=== PATIENT | male | born 1935 | race Caucasian/White ===

== ENCOUNTER 2016-06-13 13:22 | Inpatient (IN) | payer OTHER ==
--- NOTE | 2016-06-13 13:40 | PDOC ---
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 He was to undergo a cystoscopy at his doctor's office this AM but Dr Phelan was unable to perform the procedure due to a urethral stricture. Patient started bleeding ernesto blood from his urethra and Dr Phelan decided the procedure needed to be performed in the OR. The penis was cleaned and covered in gauze and the bleeding has resolved by the time of my examination. Patient is on Coumadin for his AFib but has been off of it since . Dr Carlos Vang is to see the patient tonight & assess for cystoscopy later today or tomorrow morning. Past History - Travel Traveled outside of the country in the last 30 days: No Close contact w/someone who was outside of country & ill: No - Past Medical History Allergies/Adverse Reactions: Allergies Allergy/AdvReac Type Severity Reaction Status Date / Time No Known Allergies Allergy Verified 06/13/16 13:35 Home Medications: Ambulatory Orders Digoxin [Lanoxin -] 0.125 mg PO DAILY@1800 #30 tablet 12/11/14 Clopidogrel Bisulfate [Plavix -] 75 mg PO DAILY 02/01/15 Lisinopril [Prinivil] 5 mg PO DAILY 02/01/15 Metoprolol Tartrate [Lopressor -] 50 mg PO TID 02/01/15 Warfarin Na [Coumadin] 0 mg PO ASDIR 06/14/15 Cancer: Yes (Mucosal melanoma s/p resection x2, Prostate Cancer s/p seed implants) Cardiac Disorders: Yes ([place], a-fib) Hx Myocardial Infarction: Yes HTN: Yes Hypercholesterolemia: Yes - Surgical History Cardiac Surgery: Yes (cardiac stents) Other Surgical History: Seed implants for Prostate CA - Family Disease History Comment:: 06/13/16 14:34 noncontributory - Immunization History Immunization Up to Date: Yes - Psycho/Social/Smoking Cessation Hx Anxiety: No Suicidal Ideation: No Smoking Status: No Smoking History: Never smoked Have you smoked in the past 12 months: No Number of Cigarettes Smoked Daily: 0 Information on smoking cessation initiated: No Hx Alcohol Use: No Drug/Substance Use Hx: No Substance Use Type: None Review of Systems - Review of Systems Able to Perform ROS?: Yes Is the patient limited Montenegrin proficient: No : Yes: Hematuria *Physical Exam - Vital Signs Last Vital Signs Temp Pulse Resp BP Pulse Ox 97.9 F 90 20 188/99 98 06/13/16 13:35 06/13/16 13:35 06/13/16 13:35 06/13/16 13:35 06/13/16 13:35 - Physical Exam General Appearance: Yes: Nourished, Appropriately Dressed HEENT: positive: EOMI, STEPHON, Normal ENT Inspection Neck: positive: Trachea midline, Normal Thyroid, Supple Respiratory/Chest: positive: Lungs Clear, Normal Breath Sounds Cardiovascular: positive: Irregularly Irregular Gastrointestinal/Abdominal: positive: Normal Bowel Sounds, Soft Male Genitalia: positive: other (Blood at tip of urethral meatus, dried blood on gauze covering penis) Musculoskeletal: positive: Normal Inspection Extremity: positive: Normal Inspection, Normal Range of Motion Integumentary: positive: Normal Color, Warm Neurologic: positive: hydropulper II-XII NML intact, Fully Oriented, Alert, Normal Mood/ Affect, Motor Strength 5/5 Heart Score/ECG Review - ECG Impressions Comment:: Impression: Atrial Fibrillation, 74bpm ED Treatment Course - LABORATORY CBC & Chemistry Diagram: 06/13/16 14:34 06/13/16 14:34 - ADDITIONAL ORDERS Additional order review: 06/13/16 14:37 Ordered CBC, CMP, Coagulation studies, Type&Screen, EKG to prep patient for likely cystoscopy later today. Made NPO and instructed to not drink any fluids until seen by urology. 06/13/16 15:[address] Mir. Spoke to Dr Douglas, covering for Dr Ramos, who will admit the patient to med surg. *DC/Admit/Observation/Transfer Diagnosis at time of Disposition: Acute urinary retention - Discharge Dispostion Condition at time of disposition: Stable Admit: Yes - Referrals Referrals: Radha Ramos MD [Primary Care Provider] - Addendum entered and electronically signed by Miguelito Manrique, RES 06/13/16 17:18: Patient developed a moderate nosebleed from the left nostril. Applied pressure but continued to bleed. Placed rhyno rocket in his right nostril and prescribed 5day course of Augmentin to cover for TSS.
[2016-06-13 13:44] VITALS: BMI 29.2
[2016-06-13 14:45] LABS: BASOPHIL 0.6 % (0-2.0); EOSINOPHIL 0.9 % (0-4.5); MCH 30.6 pg (25.7-33.7); MCHC 33.8 g/dl (32.0-35.9); MEAN CELL VOLUME 90.6 fl (80-96); MEAN PLT VOLUME 8.3 fl (7.5-11.1); NEUTROPHILS 74.4 % (42.8-82.8); PLATELET COUNT 165 K/MM3 (134-434); RDW 15.2 % (11.9-15.9); WHITE BLOOD COUNT 6.7 K/mm3 (4.0-10.0)
[2016-06-13 14:59] LABS: INR 1.31 (0.82-1.09); PROTHROMBIN TIME (PATIENT) 14.5 SEC (9.98-11.88)
--- NOTE | 2016-06-13 15:08 | PDOC ---
[id number] have performed the following: I have examined & evaluated the patient, The case was reviewed & discussed with the resident, I agree w/resident 's findings & plan, Exceptions are as noted - HPI HPI: 81 yo M history urethral stricture, sent by urology for admission for cystoscopy. He had unsuccessful placement of catheter in the urologist's office , now presents. Denies bleeding. He was able to urinate this morning, but not since then. Denies any abdominal pain, fever, back pain, N/V. - Physicial Exam PE: GENERAL: Awake, alert, and fully oriented, in no acute distress HEAD: No signs of trauma EYES: PERRLA, EOMI, sclera anicteric, conjunctiva clear ENT: Auricles normal inspection, hearing grossly normal, nares patent, oropharynx clear without exudates. Moist mucosa NECK: Normal ROM, supple, no lymphadenopathy, JVD, or masses LUNGS: Breath sounds equal, clear to auscultation bilaterally. No wheezes, and no crackles HEART: Regular rate and rhythm, normal S1 and S2, no murmurs, rubs or gallops ABDOMEN: Soft, nontender, normoactive bowel sounds. No guarding, no rebound. No masses EXTREMITIES: Normal range of motion, no edema. No clubbing or cyanosis. No cords, erythema, or tenderness NEUROLOGICAL: Cranial nerves II through XII grossly intact. Normal speech, normal gait SKIN: Warm, Dry, normal turgor, no rashes or lesions noted. - Medical Decision Making 81 yo M for admission for cystoscopy and catheter placement.
[2016-06-13 15:31] LABS: ALBUMIN 4.1 g/dl (3.4-5.0); ANION GAP 9 (8-16); BILIRUBIN,TOTAL 1.6 mg/dL (0.2-1.0); CALCIUM 8.7 mg/dL (8.5-10.1); CO2 25 mmol/L (21-32); GLUCOSE,RANDOM 94 mg/dL (74-106); SGOT/AST 20 U/L (15-37); SGPT/ALT 26 U/L (12-78); TOT PROT 7.7 g/dl (6.4-8.2)
[2016-06-13 15:32] LABS: ALK PHOS 66 U/L (45-117)
[2016-06-13] MEDS ORDERED: AMOX TR/POT CLAV 500MG/125MG TABLETS (FP) PO ONE (17:16)
[2016-06-13] MEDS ORDERED: AMOX TR/POT CLAV 875MG/125MG TABLETS (FP) ONE (17:18)
[2016-06-13] MEDS ORDERED: ACETAMINOPHEN 325 MG TABLET (FP) PO PRN (20:37)
[2016-06-13] MEDS: CEFTRIAXONE 50 ML IVPB SCH (21:20)
[2016-06-13] MEDS: METOPROLOL TARTRATE 50 MG TABLET (FP) PO SCH (21:20)
[2016-06-13] MEDS ORDERED: ZOLPIDEM TARTRATE 5 MG TABLET PO ONE (22:15)
[2016-06-14 07:36] LABS: INR 1.27 (0.82-1.09)
[2016-06-14 07:48] LABS: ALBUMIN 3.8 g/dl (3.4-5.0); ALK PHOS 60 U/L (45-117); ANION GAP 10 (8-16); BILIRUBIN,TOTAL 2.1 mg/dL (0.2-1.0); CALCIUM 8.7 mg/dL (8.5-10.1); CO2 29 mmol/L (21-32); CREATININE 1.1 mg/dL (0.7-1.3); GLUCOSE,RANDOM 105 mg/dL (74-106); SGOT/AST 18 U/L (15-37); SGPT/ALT 21 U/L (12-78); TOT PROT 7.3 g/dl (6.4-8.2)
--- NOTE | 2016-06-14 08:18 | CONSULT ---
Consult Consult Specialty:: urology Referred by:: Rachel Reason for Consultation:: urethral stricture - History of Present Illness Chief Complaint: urethral stricture History of Present Illness: Patient with history of urethral stricture s/p an office procedure by another doctor who is having difficulty voiding. The patient is passing bloody urine. Patient denies fever, chills, nausea, or vomiting. Patient is currently NPO. Discussed with patient x 20 minutes possibility of need to go to OR for cystoscopy and possible laser urethrotomy. - History Source History Provided By: Patient Limitations to Obtaining History: No Limitations - Alcohol/Substance Use Hx Alcohol Use: No - Smoking History Smoking history: Never smoked Have you smoked in the past 12 months: No Aproximately how many cigarettes per day: 0 If you are a former smoker, when did you quit?: 4 yrs Home Medications - Allergies Allergies/Adverse Reactions: Allergies Allergy/AdvReac Type Severity Reaction Status Date / Time No Known Allergies Allergy Verified 06/13/16 13:35 - Home Medications Home Medications: Ambulatory Orders Digoxin [Lanoxin -] 0.125 mg PO DAILY@1800 #30 tablet 12/11/14 Clopidogrel Bisulfate [Plavix -] 75 mg PO DAILY 02/01/15 Lisinopril [Prinivil] 5 mg PO DAILY 02/01/15 Metoprolol Tartrate [Lopressor -] 50 mg PO TID 02/01/15 Warfarin Na [Coumadin] 0 mg PO ASDIR 06/14/15 Physical Exam- Vital Signs: Vital Signs Temperature 97.8 F 06/14/16 05:27 Pulse Rate 71 06/14/16 05:27 Respiratory Rate 18 06/14/16 05:27 Blood Pressure 158/76 06/14/16 05:27 O2 Sat by Pulse Oximetry (%) 96 06/13/16 21:00 Constitutional: Yes: Well Nourished, No Distress, Calm Eyes: Yes: WNL, Conjunctiva Clear, EOM Intact HENT: Yes: WNL, Atraumatic, Normocephalic Neck: Yes: WNL, Supple, Trachea Midline Cardiovascular: Yes: Regular Rate and Rhythm Respiratory: Yes: WNL, Regular Gastrointestinal: Yes: WNL, Normal Bowel Sounds, Soft Renal/: Yes: WNL (question of palpable bladder) Pelvis: Yes: WNL Testicles: Yes: WNL Penis: Yes: WNL Prostate Exam: Yes: Asymmetrical, Swollen Labs: CBC, BMP 06/14/16 06:00 Assessment/Plan Impression urethral stricture plan bladder volume scan keep NPO will call Dr. Zeng's office to get complete history will re-evaluate today
--- NOTE | 2016-06-14 09:32 | HP ---
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 He was to undergo a cystoscopy at his doctor's office this AM but Dr Phelan was unable to perform the procedure due to a urethral stricture. Patient started bleeding ernesto blood from his urethra and Dr Phelan decided the procedure needed to be performed in the OR. The penis was cleaned and covered in gauze and the bleeding has resolved by the time of my examination. Patient is on Coumadin for his AFib but has been off of it since . Dr Carlos Vang is to see the patient tonight & assess for cystoscopy later today or tomorrow morning. in ER had nose bleed got nasal packing iv abx given History Source: Patient - Past Medical History Cardiovascular: Yes: AFIB, HTN, Hyperlipdemia, [place] Heme/Onc: Yes: Other (prostate cancer) - Past Surgical History Additional Past Surgical History: melanoma s/p resection - Smoking History Smoking history: Never smoked Have you smoked in the past 12 months: No Aproximately how many cigarettes per day: 0 If you are a former smoker, when did you quit?: 4 yrs - Alcohol/Substance Use Hx Alcohol Use: No Home Medications - Allergies Allergies/Adverse Reactions: Allergies Allergy/AdvReac Type Severity Reaction Status Date / Time No Known Allergies Allergy Verified 06/13/16 13:35 - Home Medications Home Medications: Ambulatory Orders Digoxin [Lanoxin -] 0.125 mg PO DAILY@1800 #30 tablet 12/11/14 Clopidogrel Bisulfate [Plavix -] 75 mg PO DAILY 02/01/15 Lisinopril [Prinivil] 5 mg PO DAILY 02/01/15 Metoprolol Tartrate [Lopressor -] 50 mg PO TID 02/01/15 Warfarin Na [Coumadin] 0 mg PO ASDIR 06/14/15 Physical Examination Vital Signs: Vital Signs Temperature 97.8 F 06/14/16 05:27 Pulse Rate 71 06/14/16 05:27 Respiratory Rate 18 06/14/16 05:27 Blood Pressure 158/76 06/14/16 05:27 O2 Sat by Pulse Oximetry (%) 96 06/13/16 21:00 Constitutional: Yes: Calm HENT: Yes: Other (rhinorocket in nose) Cardiovascular: Yes: Regular Rate and Rhythm, S1, S2 Respiratory: Yes: CTA Bilaterally Gastrointestinal: Yes: Normal Bowel Sounds, Soft Edema: No Neurological: Yes: Alert, Oriented Labs: CBC, BMP 06/14/16 06:00 Imaging - Results EKG: Report Reviewed (afib) Problem List - Problems (1) Hematuria Assessment/Plan: patient was getting cystocopy at urologist office and was found to have urethra stricture and started bleeding so procedure stopped and told to go to ER to get admitted for inpatient cystoscopy in OR [facility] and plavix on hold for last 3 days cxr ordered NPO cardio consult for clearance ekg shows afib iv abx cbc pending Code(s): R31.9 - HEMATURIA, UNSPECIFIED (2) Atrial fibrillation Assessment/Plan: hold coumadin dig and BB inr is subtherapuetic Code(s): I48.91 - UNSPECIFIED ATRIAL FIBRILLATION (3) CAD (coronary artery disease) Assessment/Plan: plavix on hold Code(s): I25.10 - ATHSCL HEART DISEASE OF [place] CORONARY ARTERY W/O ANG PCTRS Qualifiers: Coronary Disease-Associated Artery/Lesion type: [place] coronary artery Associated angina: with other forms of angina pectoris (4) Melanoma Assessment/Plan: 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
[2016-06-14] MEDS ORDERED: PT OWN MED DRAWER 7, Y5N ONE ×2 (09:33→17:32)
[2016-06-14] MEDS: METOPROLOL TARTRATE 50 MG TABLET (FP) PO SCH ×2 (09:37→21:09)
[2016-06-14] MEDS: AMOX TR/POT CLAV 500MG/125MG TABLETS (FP) PO SCH ×2 (09:37→17:36)
[2016-06-14 09:38] LABS: MCH 30.6 pg (25.7-33.7); MEAN CELL VOLUME 89.9 fl (80-96); MEAN PLT VOLUME 8.3 fl (7.5-11.1); PLATELET COUNT 156 K/MM3 (134-434); WHITE BLOOD COUNT 6.4 K/mm3 (4.0-10.0)
[2016-06-14] MEDS: CEFTRIAXONE 50 ML IVPB SCH (09:40)
[2016-06-14] MEDS ORDERED: DIGOXIN 0.125 MG TABLET (FP) PO SCH (10:00)
--- NOTE | 2016-06-14 10:10 | CONSULT ---
Cardiology Consult (text) - Consultation Consultation Note: Asked to see patient for cardiology consultation. However, patient reports that his electric range preparer is Dr. Joaquin Allen and has an follow-up appt with him on . Dr. Fritz notified and Dr. Allen contacted regarding consultation.
[2016-06-14] MEDS ORDERED: DEXTROSE 5%-0.45% SALINE 1,000 ML IV SCH (10:30)
--- NOTE | 2016-06-14 15:25 | CONSULT ---
Consult Consult Specialty:: cardio Referred by:: theo Reason for Consultation:: afib, penile bleeding, preop - History of Present Illness Chief Complaint: bleeding from penis History of Present Illness: 81 year old male sent to ED from Urologist's office for urethral stricture with penile bleeding during attempted cystoscope. He was to undergo a cystoscopy at but doctor was unable to perform the procedure due to a urethral stricture. Patient started bleeding renesto blood from his urethra and Dr Phelan decided the procedure needed to be performed in the OR. The penis was cleaned and covered in gauze and the bleeding resolved Patient is on Coumadin for his AFib but has been off of it since last . says he had microscopic hematuria on urine test prior to the procedure, but no ernesto blood. still with dark urine/maroon colored this am--now stopped. but feeling urinary hesitancy today. spontaneous severe nosebleed (L nares) 2d ago--packed in ER. has known nasal melanoma in R nares--dr for this is at [facility], no local ENT denies cp or sob, including can walk 2 flights of stairs routinely at home no palp PMH: CAD--s/p PCI (ENRIQUETA to LAD 2003 at [facility] for cp, no [place]), then with cp and +mibi so sent for cath 11/2014 at [facility] (ENRIQUETA to OM1, resid dz: 30-50% D1, prox LCx) , HTN, HPL, AF on AC w Coumadin, nasal melanoma, hematuria/urinary retention: had cystoscopy and TURBT in past - Past Medical History Cardio/Vascular: Yes: AFIB, HTN, Hyperlipdemia, [place] - Alcohol/Substance Use Hx Alcohol Use: No - Smoking History Smoking history: Never smoked Have you smoked in the past 12 months: No Aproximately how many cigarettes per day: 0 If you are a former smoker, when did you quit?: 4 yrs Home Medications - Allergies Allergies/Adverse Reactions: Allergies Allergy/AdvReac Type Severity Reaction Status Date / Time No Known Allergies Allergy Verified 06/13/16 13:35 - Home Medications Home Medications: Ambulatory Orders Digoxin [Lanoxin -] 0.125 mg PO DAILY@1800 #30 tablet 12/11/14 Clopidogrel Bisulfate [Plavix -] 75 mg PO DAILY 02/01/15 Lisinopril [Prinivil] 5 mg PO DAILY 02/01/15 Metoprolol Tartrate [Lopressor -] 50 mg PO TID 02/01/15 Warfarin Na [Coumadin] 0 mg PO ASDIR 06/14/15 Review of Systems - Review of Systems Constitutional: denies: Chills, Fever Eyes: denies: Eye Pain HENT: denies: Nasal Congestion Neck: denies: Stiffness Cardiovascular: denies: Palpitations Respiratory: denies: Orthopnea, PND Gastrointestinal: denies: Diarrhea, Rectal Bleeding Genitourinary: denies: Burning, Hematuria Musculoskeletal: denies: Muscle Pain Integumentary: denies: Rash Neurological: denies: Numbness, Seizure, Syncope Endocrine: denies: Excessive Sweating Hematology/Lymphatic: denies: Excessive Bleeding Vital Signs: Vital Signs Temperature 98.0 F 06/14/16 14:45 Pulse Rate 87 06/14/16 14:45 Respiratory Rate 18 06/14/16 14:45 Blood Pressure 133/78 06/14/16 14:45 O2 Sat by Pulse Oximetry (%) 95 06/14/16 09:00 Constitutional: Yes: Well Nourished, No Distress Eyes: No: Sclera Icterus HENT: No: Nasal Congestion Neck: No: Decreased ROM Respiratory: Yes: CTA Bilaterally. No: Accessory Muscle Use, Rales, Wheezes Gastrointestinal: Yes: Normal Bowel Sounds. No: Distention, Hepatomegaly, Palpable Mass, Tenderness Cardiovascular: Yes: Pulse Irregular JVD: No Carotid Bruit: No PMI: Non-Displaced Heart Sounds: Yes: S1, S2. No: Gallop Murmur: No: Systolic Murmur, Diastolic Murmur Musculoskeletal: Yes: Other (No kyphosis) Extremities: No: Cold, Cyanosis Edema: No Peripheral Pulses: 2+ Left Carotid, 2+ Right Carotid, 2+ Left Doralis Pedis, 2+ Right Dorsalis Pedis Integumentary: No: Jaundice Neurological: Yes: Alert, Oriented (x3) Psychiatric: No: Agitated - Other Data Labs, Other Data: CBC, BMP 06/14/16 06:00 06/14/16 06:00 INR, PTT INR 1.27 (0.82-1.09) H 06/14/16 06:00 Laboratory Tests 06/14/16 06/14/16 06/14/16 06:00 06:00 06:00 WBC 6.4 Hgb 12.9 Plt Count 156 INR 1.27 H Sodium 143 Potassium 4.4 BUN 18 Creatinine 1.1 AST 18 ALT 21 ekg 06/13: afib, normal axis/interv; no path q's; nonsp TWAs v4 (no old available ) Imaging - Results Chest X-ray: Report Reviewed (clear lungs/pleura) Assessment/Plan Cath/PCI 11/2014: ENRIQUETA PCI OM1, patent prox LAD stent, mild residual (stent jailed Diag1, mild prox LCx disease) Echo 11/2014: normal LV/RV size and function, mild to mod MR, mild to mod AI, mod TR, mod ao root dilation CAD: -plavix can be d/c'd since pt on warfarin and last ENRIQUETA was 2014 (>12 mo)-- given had microscopic hematuria even prior to instrumentation, and spontaneous, severe epistaxis, will hold it as he will not likely tolerate both AC and plavix -can f/u in office with dr sepulveda and consider adding back plavix or ASA later , if both bleeding conditions are resolved, though this is not an urgent short- term indication -please continue pt's home metopr, lisinopril and atorvastatin regimen HTN: -controlled, cont home meds Afib: -dig and metopr as on at home for HR control -warfarin to resume postop when ok with -if hematuria resolves, but has recurrent epistaxis on warfarin, pt should see ENT for scope and local tx -will check routine dig level here 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
--- NOTE | 2016-06-14 16:26 | EKG ---
Test Reason : Blood Pressure : / mmHG Vent. Rate : 074 BPM Atrial Rate : 300 BPM P-R Int : 000 ms QRS Dur : 084 ms QT Int : 348 ms P-R-T Axes : 000 004 062 degrees QTc Int : 386 ms ATRIAL FIBRILLATION NONSPECIFIC T WAVE ABNORMALITY ABNORMAL ECG WHEN COMPARED WITH ECG OF 29-JUN-2015 20:02, T WAVE VARIATION Confirmed by ORA COLLINS MD ([id number]) on 06/14/2016 4:26:08 PM Referred By: Confirmed By:ORA COLLINS MD
[2016-06-14] MEDS ORDERED: LIDOCAINE HCL/PF 2% SDV 5ML VIAL ONE (18:13)
[2016-06-14] MEDS ORDERED: PROPOFOL 20 ML ONE (18:13)
--- NOTE | 2016-06-14 18:42 | OP ---
Operative Note - Note: Operative Date: 06/14/16 Pre-Operative Diagnosis: urinary retention/urethral stricture Operation: cystoscopy/laser urethrotomy Findings: 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 Post-Operative Diagnosis: Same as Pre-op Surgeon: Wilfred Mir Anesthesia: General Drains & Tubes with Location: [address]
--- NOTE | 2016-06-14 19:39 | OP ---
DATE OF OPERATION: 06/14/2016 PREOPERATIVE DIAGNOSIS: Acute urinary retention and urethral stricture. POSTOPERATIVE DIAGNOSIS: Acute urinary retention and urethral stricture. PROCEDURE: Cystoscopy and laser urethrotomy. ATTENDING: Amy Lu MD ANESTHESIA: General. OPERATION: The patient was evaluated in the morning and was having difficulty voiding. The patient subsequently went into acute urinary retention. The patient could not have a catheter placed due to previous attempts which created false passages in the urethra. The patient was taken emergently to the operating room in order to decompress his bladder and avoid rupture of the bladder. The patient is brought to the operating room, placed in a supine position on the operating room table. General anesthesia is administered at this time. The patient was then placed in the dorsal lithotomy position. He was prepped and draped in the usual sterile manner and cystoscopy is performed. A high-grade urethral stricture with multiple false passages from previous catheter placement attempts were noted. With difficulty, a wire was passed into the bladder. With the wire as a guide, a laser urethrotomy was then performed along the 12 o'clock position of the bulbous urethra, with care as to not cut into viable muscle tissue. With a relaxing incision made at the 12 o'clock position, the rigid cystoscope was brought into the bladder. Irregular prostatic tissue was noted. The bladder was noted to have small clots. No evidence of neoplasm within the bladder was noted. The patient tolerated the procedure very well. A 22-Cymraes catheter was placed over the wire. There were no complications noted. The disposition of the patient is to the recovery room. AMY LU M.D. [id number]
[2016-06-14] MEDS: DEXTROSE 5%-0.45% SALINE 1,000 ML IV SCH (20:02)
[2016-06-14] MEDS ORDERED: ZOLPIDEM TARTRATE 5 MG TABLET ONE (22:04)
[2016-06-14] MEDS: ACETAMINOPHEN 325 MG TABLET (FP) PO PRN (22:07)
[2016-06-14] MEDS ORDERED: ZOLPIDEM TARTRATE 5 MG TABLET PO ONE (22:15)
--- NOTE | 2016-06-15 08:25 | PN ---
Progress Note, Physician - Current Medication List Current Medications: Active Medications Acetaminophen (Tylenol -) 650 mg PO Q6H PRN PRN Reason: FEVER OR PAIN Last Admin: 06/14/16 22:07 Dose: 650 mg Digoxin (Lanoxin -) 0.125 mg PO DAILY [facility] Fentanyl (Sublimaze Injection -) 25 mcg IVPUSH [id number] PRN PRN Reason: PAIN Stop: 06/17/16 18:48 Ceftriaxone Sodium (Rocephin 1gm Ivpb (Pre-Docked)) 50 mls @ 100 mls/hr IVPB DAILY [facility] Dextrose/Sodium Chloride (D5-1/2ns -) 1,000 mls @ 75 mls/hr IV ASDIR [facility] Last Admin: 06/14/16 20:02 Dose: 0 mls Metoprolol Tartrate (Lopressor -) 50 mg PO BID [facility] Last Admin: 06/14/16 21:09 Dose: 50 mg - Objective Vital Signs: Vital Signs Temperature 97.6 F 06/15/16 04:54 Pulse Rate 75 06/15/16 04:54 Respiratory Rate 18 06/15/16 04:54 Blood Pressure 149/75 06/15/16 04:54 O2 Sat by Pulse Oximetry (%) 96 06/14/16 19:45 HENT: Yes: Other (packing) Cardiovascular: Yes: S1, S2 Respiratory: Yes: Regular, CTA Bilaterally Gastrointestinal: Yes: Normal Bowel Sounds, Soft Genitourinary: Yes: Doe Present, Hematuria Labs: CBC, BMP 06/14/16 06:00 06/14/16 06:00 INR, PTT INR 1.27 (0.82-1.09) H 06/14/16 06:00 Assessment/Plan - Problems (1) Hematuria Assessment/Plan: patient was getting cystocopy at urologist office and was found to have urethra stricture and started bleeding so procedure stopped and told to go to ER to get admitted for inpatient cystoscopy in OR Operative Date: 06/14/16 Pre-Operative Diagnosis: urinary retention/urethral stricture Operation: cystoscopy/laser urethrotomy Findings: 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 couamdin and plavix on hold for last 3 days resume coumadin once cleared by uro cxr ordered cardio consult for clearance ekg shows afib iv abx Code(s): R31.9 - HEMATURIA, UNSPECIFIED (2) Atrial fibrillation Assessment/Plan: hold coumadin dig and BB inr is subtherapuetic Code(s): I48.91 - UNSPECIFIED ATRIAL FIBRILLATION (3) CAD (coronary artery disease) Assessment/Plan: plavix on hold Code(s): I25.10 - ATHSCL HEART DISEASE OF [place] CORONARY ARTERY W/O ANG PCTRS Qualifiers: Coronary Disease-Associated Artery/Lesion type: [place] coronary artery Associated angina: with other forms of angina pectoris (4) Melanoma Assessment/Plan: 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
[2016-06-15] MEDS: DIGOXIN 0.125 MG TABLET (FP) PO SCH (09:38)
[2016-06-15] MEDS: CEFTRIAXONE 50 ML IVPB SCH (09:38)
[2016-06-15] MEDS: METOPROLOL TARTRATE 50 MG TABLET (FP) PO SCH ×2 (09:38→21:31)
[2016-06-15] MEDS: ACETAMINOPHEN 325 MG TABLET (FP) PO PRN ×2 (09:57→21:30)
--- NOTE | 2016-06-15 11:57 | PN ---
Progress Note (short form) - Note Progress Note: s: no cp sob palps dizzy o: Vital Signs Period Temp Pulse Resp BP Sys/Bernard Pulse Ox Last 24 Hr 97 F-98.0 F 74-94 16-20 121-170/64-96 95-97 nad no jvd irreg s1s2 no mrg ctabl nl eff aaox3 no le e/c/c no jaundice diaphoresis abd nt nd pos bs Current Medications Generic Name Dose Route Start Last Admin Trade Name Freq PRN Reason Stop Dose Admin Acetaminophen 650 mg 06/14/16 20:01 06/15/16 09:57 Tylenol - PO 650 mg Q6H PRN Administration FEVER OR PAIN Digoxin 0.125 mg 06/15/16 10:00 06/15/16 09:38 Lanoxin - PO 0.125 mg DAILY FERNANDO Administration Fentanyl 25 mcg 06/14/16 18:47 Sublimaze Injection - IVPUSH 06/17/16 18:48 [id number] PRN PAIN Ceftriaxone Sodium 50 mls @ 100 mls/hr 06/15/16 10:00 06/15/16 09:38 Rocephin 1gm Ivpb (Pre-Docked) IVPB 100 mls/hr DAILY FERNANDO Administration Dextrose/Sodium Chloride 1,000 mls @ 75 mls/hr 06/14/16 20:01 06/14/16 20:02 D5-1/2ns - IV 0 mls ASDIR FERNANDO Administration Metoprolol Tartrate 50 mg 06/14/16 22:00 06/15/16 09:38 Lopressor - PO 50 mg BID FERNANDO Administration CBC, BMP 06/14/16 06:00 06/14/16 06:00 ekg 06/13: afib, normal axis/interv; no path q's; nonsp TWAs v4 (no old available ) Cath/PCI 11/2014: ENRIQUETA PCI OM1, patent prox LAD stent, mild residual (stent jailed Diag1, mild prox LCx disease) Echo 11/2014: normal LV/RV size and function, mild to mod MR, mild to mod AI, mod TR, mod ao root dilation echo 08/2015: nl lv/rv, mild lae, mild ar/mr/tr/pr, mild phtn, nl ao root ett 09/2015: no ischemia a/p: CAD: -stable, no angina, acs. normal lvef on recent echo. normal ETT recently. -plavix can be d/c'd since pt on warfarin and last ENRIQUETA was 2014 (>12 mo)-- given had microscopic hematuria even prior to instrumentation, and spontaneous, severe epistaxis, will hold it as he will not likely tolerate both AC and plavix -continue pt's home metopr, lisinopril and atorvastatin regimen HTN: -cont home meds Afib: -rate controlled, cont home dig and metoprolol -warfarin to resume postop when ok with -if hematuria resolves, but has recurrent epistaxis on warfarin, pt should see ENT for scope and local tx aorta aneurysm (root) -reported as mod dilated on 12/10 echo, normal ao root on 08/2015 echo -no sx's -bp reasonably controlled, and pt on bb-including regimen -routine outpt monitoring appropriate
--- NOTE | 2016-06-15 12:29 | CONSULT ---
Consult Consult Specialty:: ENT Reason for Consultation:: Nosebleed - History of Present Illness Chief Complaint: Sudden onset left sided nosebleed on Monday History of Present Illness: 81 yo male with hx of nasal melanoma, s/p excision x2, had sudden onset left sided nosebleed while in ER on Monday. He was also experiencing hematuria. Rapid rhino pack was placed with control. He has been off of Coumadin since last week. - History Source History Provided By: Patient Limitations to Obtaining History: No Limitations - Past Medical History Cardio/Vascular: Yes: AFIB, HTN, Hyperlipdemia, [place] ENT: Yes: Other (Nasal melanoma) - Past Surgical History Additional Surgical History: Nasal melanoma resection with palate prosthesis - Alcohol/Substance Use Hx Alcohol Use: No - Smoking History Smoking history: Never smoked Have you smoked in the past 12 months: No Aproximately how many cigarettes per day: 0 If you are a former smoker, when did you quit?: 4 yrs Home Medications - Allergies Allergies/Adverse Reactions: Allergies Allergy/AdvReac Type Severity Reaction Status Date / Time No Known Allergies Allergy Verified 06/13/16 13:35 - Home Medications Home Medications: Ambulatory Orders Digoxin [Lanoxin -] 0.125 mg PO DAILY@1800 #30 tablet 12/11/14 Clopidogrel Bisulfate [Plavix -] 75 mg PO DAILY 02/01/15 Lisinopril [Prinivil] 5 mg PO DAILY 02/01/15 Metoprolol Tartrate [Lopressor -] 50 mg PO TID 02/01/15 Warfarin Na [Coumadin] 0 mg PO ASDIR 06/14/15 Review of Systems - Review of Systems HENT: reports: Epistaxis Physical Exam-ENT Vital Signs: Vital Signs Temperature 97.9 F 06/15/16 10:00 Pulse Rate 94 H 06/15/16 10:00 Respiratory Rate 18 06/15/16 10:00 Blood Pressure 142/85 06/15/16 10:00 O2 Sat by Pulse Oximetry (%) 96 06/14/16 19:45 Constitutional: Yes: Well Nourished, No Distress Head: Yes: WNL Face: Yes: WNL Eyes: Yes: WNL Nose: Yes: Septum Perforated, Other (dry left pack in place) Nasal Passage: Yes: Other (left pack , right side with dry blood) Oral/Pharynx: Yes: Other (s/p palate resection, no bleeding) Outer Ear: Yes: WNL Neck: Yes: WNL Problem List - Problems (1) Epistaxis Assessment/Plan: Pt with recent left sided nosebleed controlled with rapid rhino pack 2 days ago. Pack should remain 1 more day at least. Can be discharged with follow-up for removal as outpatient tomorrow or Monday. Code(s): R04.0 - EPISTAXIS
[2016-06-15] MEDS ORDERED: ZOLPIDEM TARTRATE 5 MG TABLET PO ONE (21:15)
[2016-06-15] MEDS: DEXTROSE 5%-0.45% SALINE 1,000 ML IV SCH (21:33)
[2016-06-16 05:24] VITALS: TEMP 97.4
--- NOTE | 2016-06-16 08:33 | DS ---
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 He was to undergo a cystoscopy at his doctor's office this AM but Dr Phelan was unable to perform the procedure due to a urethral stricture. Patient started bleeding ernesto blood from his urethra and Dr Phelan decided the procedure needed to be performed in the OR. The penis was cleaned and covered in gauze and the bleeding has resolved by the time of my examination. Patient is on Coumadin for his AFib but has been off of it since . Dr Carlos Vang is to see the patient tonight & assess for cystoscopy later today or tomorrow morning. in ER had nose bleed got nasal packing iv abx given History Source: Patient - Past Medical History Cardiovascular: Yes: AFIB, HTN, Hyperlipdemia, [place] Heme/Onc: Yes: Other (prostate cancer) - Past Surgical History Additional Past Surgical History: melanoma s/p resection - Problems (1) Hematuria Assessment/Plan: patient was getting cystocopy at urologist office and was found to have urethra stricture and started bleeding so procedure stopped and told to go to ER to get admitted for inpatient cystoscopy in OR Operative Date: 06/14/16 Pre-Operative Diagnosis: urinary retention/urethral stricture Operation: cystoscopy/laser urethrotomy Findings: 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 couamdin and plavix resume resume coumadin once cleared by uro cxr ordered cardio consult for clearance ekg shows afib po abx Code(s): R31.9 - HEMATURIA, UNSPECIFIED (2) Atrial fibrillation Assessment/Plan: hold coumadin dig and BB inr is subtherapuetic Code(s): I48.91 - UNSPECIFIED ATRIAL FIBRILLATION (3) CAD (coronary artery disease) Assessment/Plan: plavix on hold Code(s): I25.10 - ATHSCL HEART DISEASE OF [place] CORONARY ARTERY W/O ANG PCTRS Qualifiers: Coronary Disease-Associated Artery/Lesion type: [place] coronary artery Associated angina: with other forms of angina pectoris (4) Melanoma Assessment/Plan: 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 Condition: Improved - Instructions Referrals: Radha Ramos MD [Primary Care Provider] - Valentín Mcneil MD [Staff Physician] - Shelli Zeng MD [Staff Physician] - Disposition: HOME - Home Medications Comprehensive Discharge Medication List: Ambulatory Orders Digoxin [Lanoxin -] 0.125 mg PO DAILY@1800 #30 tablet 12/11/14 Clopidogrel Bisulfate [Plavix -] 75 mg PO DAILY 02/01/15 Lisinopril [Prinivil] 5 mg PO DAILY 02/01/15 Metoprolol Tartrate [Lopressor -] 50 mg PO TID 02/01/15 Warfarin Na [Coumadin] 0 mg PO ASDIR 06/14/15
[2016-06-16 10:42] VITALS: BP 134/70
[2016-06-16] MEDS: DIGOXIN 0.125 MG TABLET (FP) PO SCH (10:45)
[2016-06-16 10:48] VITALS: PULSE 98
[2016-06-16] MEDS: CEFTRIAXONE 50 ML IVPB SCH (10:48)
[2016-06-16] MEDS: METOPROLOL TARTRATE 50 MG TABLET (FP) PO SCH (10:48)
--- NOTE | 2016-06-16 11:15 | PN ---
Progress Note (short form) - Note Progress Note: s: no cp sob palps dizzy o: Vital Signs Period Temp Pulse Resp BP Sys/Bernard Pulse Ox Last 24 Hr 97.4 F-98.9 F 67-98 18-18 126-162/70-90 95 nad no jvd irreg s1s2 no mrg ctabl nl eff aaox3 no le e/c/c no jaundice diaphoresis abd nt nd pos bs Current Medications Generic Name Dose Route Start Last Admin Trade Name Freq PRN Reason Stop Dose Admin Acetaminophen 650 mg 06/14/16 20:01 06/15/16 21:30 Tylenol - PO 650 mg Q6H PRN Administration FEVER OR PAIN Digoxin 0.125 mg 06/15/16 10:00 06/16/16 10:45 Lanoxin - PO 0.125 mg DAILY FERNANDO Administration Fentanyl 25 mcg 06/14/16 18:47 Sublimaze Injection - IVPUSH 06/17/16 18:48 [id number] PRN PAIN Ceftriaxone Sodium 50 mls @ 100 mls/hr 06/15/16 10:00 06/16/16 10:48 Rocephin 1gm Ivpb (Pre-Docked) IVPB 100 mls/hr DAILY FERNANDO Administration Dextrose/Sodium Chloride 1,000 mls @ 75 mls/hr 06/14/16 20:01 06/15/16 21:33 D5-1/2ns - IV 75 mls/hr ASDIR FERNANDO Administration Metoprolol Tartrate 50 mg 06/14/16 22:00 06/16/16 10:48 Lopressor - PO 50 mg BID FERNANDO Administration CBC, BMP 06/14/16 06:00 06/14/16 06:00 ekg 06/13: afib, normal axis/interv; no path q's; nonsp TWAs v4 (no old available ) Cath/PCI 11/2014: ENRIQUETA PCI OM1, patent prox LAD stent, mild residual (stent jailed Diag1, mild prox LCx disease) Echo 11/2014: normal LV/RV size and function, mild to mod MR, mild to mod AI, mod TR, mod ao root dilation echo 08/2015: nl lv/rv, mild lae, mild ar/mr/tr/pr, mild phtn, nl ao root ett 09/2015: no ischemia a/p: CAD: -stable, no angina, acs. normal lvef on recent echo. normal ETT recently. -plavix can be d/c'd since pt on warfarin and last ENRIQUETA was 2014 (>12 mo)-- given had microscopic hematuria even prior to instrumentation, and spontaneous, severe epistaxis, will hold it as he will not likely tolerate both AC and plavix -continue pt's home metopr, lisinopril and atorvastatin regimen HTN: -cont home meds Afib: -rate controlled, cont home dig and metoprolol -warfarin now resumed w/o bridging -if has recurrent epistaxis on warfarin, pt should see ENT for scope and local tx aorta aneurysm (root) -reported as mod dilated on 12/10 echo, normal ao root on 08/2015 echo -no sx's -bp reasonably controlled, and pt on bb-including regimen -routine outpt monitoring appropriate cardiac moraes stable for dc
--- NOTE | 2016-06-16 12:37 | PN ---
Progress Note (short form) - Note Progress Note: Pt without any nasal bleeding since packing placed. Balloon deflated and pack removed. 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 A/P: Resolved epistaxis - Keep nose moist with saline rinses 2-3x/day. -Follow-up as scheduled at [facility] for hx of nasal melanoma Problem List - Problems (1) Epistaxis Code(s): R04.0 - EPISTAXIS
== END 2016-06-16 14:19 | disposition home or self-care (01) | DRG 672 ==
LOC: JER 13:22 → JERBED 16:01 → UNDOADMIN 16:01 → J7W 18:35 → JERBED 18:35 → J7W 20:34 → UNDODISIN 06-14 17:22
PROVIDERS: ADMIT Family Medicine; ATTEND Family Medicine
PROC: 2Y41X5Z Packing of Nasal Region using Packing Material (ICD-10-PCS; 2016-06-13)
PROC: 0T9D8ZZ Drainage of Urethra, Via Natural or Artificial Opening Endoscopic (ICD-10-PCS; principal; 2016-06-14 17:30)
DX: N35.9 Urethral stricture, unspecified (principal); R33.9 Retention of urine, unspecified; I10 Essential (primary) hypertension; E78.5 Hyperlipidemia, unspecified; R04.0 Epistaxis; I48.91 Unspecified atrial fibrillation; I25.10 Atherosclerotic heart disease of native coronary artery without angina pectoris; R31.9 Hematuria, unspecified
CPT/HCPCS: 36415; 71010-TC; 80053; 85025; 85027; 85610; 86850; 86900; 86901; 93005; 93010; 94760; 99282-25

== ENCOUNTER 2016-08-15 02:44 | Emergency (ER) | payer OTHER ==
--- NOTE | 2016-08-15 02:59 | PDOC ---
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 The patient complains of chest pain and some shortness of breath that occurs with his shakes. He also endorses some nausea. The patient has an appointment with Dr. Allen tomorrow morning. PMD: Tanvir Kuo MD <Kindra Rush - Last Filed: 08/15/16 05:59> - General Chief Complaint: Tremors Stated Complaint: TREMORS Past History - Past Medical History Cancer: Yes (Mucosal melanoma s/p resection x2, Prostate Cancer s/p seed implants) Cardiac Disorders: Yes (OK, a-fib) HTN: Yes Hypercholesterolemia: Yes - Surgical History Cardiac Surgery: Yes (cardiac stents) - Immunization History Immunization Up to Date: Yes - Psycho/Social/Smoking Cessation Hx Anxiety: No Suicidal Ideation: No Smoking Status: No Smoking History: Never smoked Have you smoked in the past 12 months: No Number of Cigarettes Smoked Daily: 0 If you are a former smoker, when did you quit?: 4 yrs Hx Alcohol Use: No Drug/Substance Use Hx: No Substance Use Type: None <Vernon Santacruz - Last Filed: 08/15/16 05:51> <Kindra Rush - Last Filed: 08/15/16 05:59> - Past Medical History Allergies/Adverse Reactions: Allergies Allergy/AdvReac Type Severity Reaction Status Date / Time No Known Allergies Allergy Verified 08/15/16 02:51 Home Medications: Ambulatory Orders Digoxin [Lanoxin -] 0.125 mg PO DAILY@1800 #30 tablet 12/11/14 Lisinopril [Prinivil] 5 mg PO DAILY 02/01/15 Metoprolol Tartrate [Lopressor -] 50 mg PO TID 02/01/15 Warfarin Na [Coumadin -] 4 mg PO ASDIR 06/14/15 Review of Systems - Review of Systems Comments:: 08/15/16 03:46 GENERAL/CONSTITUTIONAL: Shakes, generalized weakness. No fever. HEAD, EYES, EARS, NOSE AND THROAT: No change in vision. No ear pain or discharge. No sore throat. CARDIOVASCULAR: Chest pain, shortness of breath. RESPIRATORY: No cough, wheezing, or hemoptysis. GASTROINTESTINAL: Nausea. No vomiting, diarrhea or constipation. GENITOURINARY: No dysuria, frequency, or change in urination. MUSCULOSKELETAL: No joint or muscle swelling or pain. No neck or back pain. SKIN: No rash NEUROLOGIC: No headache, vertigo, loss of consciousness, or change in strength/ sensation. <Kindra Rush - Last Filed: 08/15/16 05:59> *Physical Exam - Vital Signs Last Vital Signs Temp Pulse Resp BP Pulse Ox 100.5 F H 115 H 18 168/88 93 L 08/15/16 02:51 08/15/16 02:51 08/15/16 02:51 08/15/16 02:51 08/15/16 02:51 <Vernon Santacruz - Last Filed: 08/15/16 05:51> - Vital Signs Last Vital Signs Temp Pulse Resp BP Pulse Ox 100.5 F H 115 H 18 168/88 96 08/15/16 02:51 08/15/16 02:51 08/15/16 02:51 08/15/16 02:51 08/15/16 03:11 - Physical Exam Comments: 08/15/16 03:48 GENERAL: Awake, alert, and fully oriented, in no acute distress HEAD: No signs of trauma EYES: PERRLA, EOMI, sclera anicteric, conjunctiva clear ENT: Auricles normal inspection, hearing grossly normal, nares patent, oropharynx clear without exudates. Dry mucosa NECK: Normal ROM, supple, no lymphadenopathy, JVD, or masses LUNGS: Breath sounds equal, clear to auscultation bilaterally. No wheezes, and no crackles HEART: Tachycardic in AFib, normal S1 and S2, mild systolic murmur in aortic area no radiation. No rubs or gallops ABDOMEN: Soft, nontender, normoactive bowel sounds. No guarding, no rebound. No masses EXTREMITIES: Normal range of motion. 1+ pitting edema lower extremities bilaterally. No clubbing or cyanosis. No cords, erythema, or tenderness NEUROLOGICAL: Cranial nerves II through XII grossly intact. Normal speech, normal gait SKIN: Warm, Dry, normal turgor, no rashes or lesions noted. ENDOCRINE: No increased thirst. No abnormal weight change. HEMATOLOGIC/LYMPHATIC: No anemia, easy bleeding, or history of blood clots. ALLERGIC/IMMUNOLOGIC: No hives or skin allergy. <Kindra Rush - Last Filed: 08/15/16 05:59> ED Treatment Course - LABORATORY CBC & Chemistry Diagram: 08/15/16 03:00 08/15/16 03:00 <Vernon Santacruz - Last Filed: 08/15/16 05:51> - LABORATORY CBC & Chemistry Diagram: 08/15/16 03:00 08/15/16 03:00 - ADDITIONAL ORDERS Additional order review: Laboratory Results 08/15/16 08/15/16 03:00 03:00 Phosphorus Cancelled Magnesium Cancelled Creatine Kinase Cancelled Troponin I Cancelled B-Natriuretic Peptide Cancelled Lipase Cancelled 08/15/16 03:00 RBC 3.92 L MCV 88.5 MCHC 34.1 RDW 14.4 MPV 8.5 Neutrophils % 87.3 H Lymphocytes % 4.0 L D Monocytes % 6.0 Eosinophils % 2.4 D Basophils % 0.3 - RADIOLOGY Radiograph Interpretation: 08/15/16 05:58 Fabric Sourcer: Report Date: 08/15/2016 05:26:00 Report Status: Preliminary Begin of Report Content Referring Physician: Vernon Santacruz Patient Name: Peña Fowler THIS IS A FINAL REPORT FROM [facility]AGE RE[facility] DATE OF SERVICE: 2016-08-15 05:26:18.0 IMAGES: 151 EXAM: HEAD CT WITHOUT CONTRAST HISTORY:Tremors COMPARISON: None. FINDINGS: Serial axial images of the brain are provided without priors. There is no acute intra-or extra-axial fluid collections, midline shift, mass effect or hydrocephalus. The brain parenchyma shows diffuse cortical atrophy and chronic nonspecific periventricular and deep white matter parenchymal disease, likely due to chronic microvascular ischemic disease. Small fluid level in the left maxillary sinus is nonspecific. Correlate to exclude sinusitis. Postsurgical changes in the right orbit. Sequela of prior paranasal sinus surgery. Correlate with history. Bilateral mastoid air cells are clear. THIS DOCUMENT HAS BEEN ELECTRONICALLY SIGNED Cruz Elias MD. 08/15/2016 05:51 DUC [facility]. Please call Imaging Duplicating Machine Mechanic [phone] ([phone]) with questions. End of Report Content <Kindra Rush - Last Filed: 08/15/16 05:59> Medical Decision Making - Medical Decision Making 08/15/16 05:52 81yo M with "tremors" and recent h/o UTI which he is being treated for. He has a negative evaluation aside from evidence of UTI, and there are no cultures or sensitivities which was inconclusive. He has no findings on CT and his neurologic exam is grossly unremarkable. He is discharged at this time with instruction to continue his antibiotics and to have follow up with the PMD within the next 48 hours. <Vernon Santacruz - Last Filed: 08/15/16 05:51> *DC/Admit/Observation/Transfer - Discharge Dispostion Admit: No Decision to Admit order Date/Time: 08/15/16 05:52 - Attestations Physician Attestion: 08/15/16 05:56 I, Dr. Vernon Santacruz MD, attest that this document has been prepared under my direction and personally reviewed by me in its entirety. I further attest, that it accurately reflects all work, treatment, procedures and medical decision -making performed by me. <Vernon Santacruz - Last Filed: 08/15/16 05:51> - Attestations Scribe Attestion: Documentation prepared by Kindra Rush, acting as medical editor for Vernon Santacruz MD. 08/15/16 03:49 <Kindra Rush - Last Filed: 08/15/16 05:59> Diagnosis at time of Disposition: Shaking chills UTI (urinary tract infection) Qualifiers: Urinary tract infection type: acute cystitis Hematuria presence: without hematuria Qualified Code(s): N30.00 - Acute cystitis without hematuria - Discharge Dispostion Disposition: HOME Condition at time of disposition: Good - Referrals Referrals: Radha Ramos MD [Primary Care Provider] -
[2016-08-15 03:06] VITALS: BMI 22.3
[2016-08-15 03:30] LABS: BASOPHIL 0.3 % (0-2.0); EOSINOPHIL 2.4 % (0-4.5); MCH 30.1 pg (25.7-33.7); MCHC 34.1 g/dl (32.0-35.9); MEAN CELL VOLUME 88.5 fl (80-96); MEAN PLT VOLUME 8.5 fl (7.5-11.1); NEUTROPHILS 87.3 % (42.8-82.8); PLATELET COUNT 115 K/MM3 (134-434); RDW 14.4 % (11.9-15.9); WHITE BLOOD COUNT 5.2 K/mm3 (4.0-10.0)
[2016-08-15 03:39] LABS: URINE BILIRUBIN NEGATIVE (NEGATIVE); URINE COLOR YELLOW; URINE GLUCOSE (UA) NEGATIVE (NEGATIVE); URINE KETONE NEGATIVE (NEGATIVE); URINE NITRITE NEGATIVE (NEGATIVE); URINE UROBILINOGEN NEGATIVE E.U./dl (0.2-1.0)
[2016-08-15 03:52] LABS: URINE APPEARANCE CLOUDY; URINE BLOOD 3+ (NEGATIVE); URINE LEUK ESTERASE 3+ (NEGATIVE); URINE PROTEIN 2+ (NEGATIVE)
[2016-08-15 03:58] LABS: URINE BACTERIA MODERATE /hpf (NONE SEEN); URINE MUCUS RARE; URINE RBC 1011 /hpf (0-3); URINE WBC 90 /hpf (3-5); YEAST RARE
[2016-08-15 04:03] LABS: ALBUMIN 3.3 g/dl (3.4-5.0); ANION GAP 9 (8-16); CALCIUM 8.3 mg/dL (8.5-10.1); CO2 27 mmol/L (21-32); GLUCOSE,RANDOM 137 mg/dL (74-106); MAGNESIUM 1.9 mg/dL (1.8-2.4)
[2016-08-15 04:06] LABS: ALK PHOS 97 U/L (45-117); BILIRUBIN,TOTAL 2.5 mg/dL (0.2-1.0); CREATININE 0.9 mg/dL (0.7-1.3); PHOSPHOROUS 1.8 mg/dL (2.5-4.9); SGOT/AST 120 U/L (15-37); SGPT/ALT 167 U/L (12-78); TOT PROT 6.7 g/dl (6.4-8.2); TROPONIN I 0.09 ng/ml (0.00-0.05)
[2016-08-15 04:37] LABS: INR 1.38 (0.82-1.09); PROTHROMBIN TIME (PATIENT) 15.3 SEC (9.98-11.88)
[2016-08-15 05:05] VITALS: TEMP 98.3
[2016-08-15 06:43] VITALS: BP 165/85; PULSE 96
== END 2016-08-15 07:00 | disposition home or self-care (01) ==
LOC: JER 02:44
DX: G25.2 Other specified forms of tremor (principal); N30.00 Acute cystitis without hematuria; I25.2 Old myocardial infarction; I10 Essential (primary) hypertension; I48.91 Unspecified atrial fibrillation; Z79.01 Long term (current) use of anticoagulants; Z95.5 Presence of coronary angioplasty implant and graft; E78.00 Pure hypercholesterolemia, unspecified; Z85.46 Personal history of malignant neoplasm of prostate; Z85.820 Personal history of malignant melanoma of skin; Z85.22 Personal history of malignant neoplasm of nasal cavities, middle ear, and accessory sinuses
CPT/HCPCS: 36415; 70450-TC; 71010-TC; 80053; 81003; 81015; 82550; 82553; 83605; 83690; 83735; 83880; 84100; 84484; 85025; 85610; 86850; 86900; 86901; 87086; 99284-25

== ENCOUNTER 2016-08-19 06:24 | Day surgery (SDC) | payer OTHER ==
[2016-08-16 15:42] VITALS: BMI 29.5
[2016-08-19 07:30] LABS: INR 1.16 (0.82-1.09); PROTHROMBIN TIME (PATIENT) 12.8 SEC (9.98-11.88)
[2016-08-19 07:32] LABS: ACTIVATED PTT 30.8 SECONDS (26.9-34.4)
[2016-08-19] MEDS ORDERED: PROPOFOL 20 ML ONE (08:02)
[2016-08-19] MEDS ORDERED: MIDAZOLAM HCL 2 MG/2 ML SINGLE DOSE VIAL ONE (08:03)
[2016-08-19] MEDS ORDERED: ceFAZolin SODIUM 1 GM VIAL ONE (08:22)
[2016-08-19] MEDS ORDERED: ceFAZolin SODIUM 1 GM VIAL IVPB ONE (08:24)
[2016-08-19] MEDS ORDERED: GENTAMICIN SO4 80 MG/2 ML VIAL IVPB ONE (08:30)
[2016-08-19] MEDS ORDERED: GENTAMICIN SO4 80 MG/2 ML VIAL ONE (08:30)
[2016-08-19] MEDS ORDERED: oxyCODONE HCL 5 MG TABLET PO PRN ×5 (08:41→10:59)
[2016-08-19] MEDS ORDERED: ACETAMINOPHEN 325 MG TABLET (FP) PO PRN ×4 (08:41→10:59)
[2016-08-19] MEDS ORDERED: ONDANSETRON 4 MG/2 ML VIAL IVPUSH PRN (08:41)
[2016-08-19] MEDS ORDERED: LACTATED RINGERS SOLUTION 1,000 ML IV SCH (08:45)
--- NOTE | 2016-08-19 09:26 | OP ---
Operative Note - Note: Operative Date: 08/19/16 Pre-Operative Diagnosis: gross hematuria. bladder tumor Operation: cysto turbt bladder tumor Findings: 3 cm malignant r hemidome tumor Surgeon: Shelli Zeng Specimens Removed: tumor sent to lab
--- NOTE | 2016-08-19 09:28 | PN ---
IVET Navarro Note Chief Complaint: stable post op - Objective Vital Signs: Vital Signs Temperature 98.8 F 08/19/16 06:59 Pulse Rate 87 08/19/16 06:59 Respiratory Rate 18 08/19/16 06:59 Blood Pressure 141/85 08/19/16 06:59 O2 Sat by Pulse Oximetry (%) 94 L 08/19/16 06:59 Labs/Additional Data: INR, PTT INR 1.16 (0.82-1.09) H 08/19/16 06:35 Assessment/Plan pt had cysto turbt lg 3 cm tumor at r hemidome sent for path d/c on keflex and percocet prn f/u in office monday jackie to td santiago
--- NOTE | 2016-08-19 09:38 | HP ---
DATE OF ADMISSION: 08/19/2016 HISTORY OF PRESENT ILLNESS: Patient is an 81-year-old male with history of gross total painless hematuria. Cystoscopy performed in the office revealed a large papillary mass at the dome of the bladder. Therefore, patient is scheduled electively for a transurethral resection of the bladder tumor. He has undergone radiation seed implantation in July of 2006 for localized prostate cancer. Patient also underwent maxillary sinus surgery for melanoma in 2016. He also underwent radiation to the area. The patient also had several episodes of intermittent urinary retention. He presently has a Doe catheter in after his cystoscopy. Patient does have history of high blood pressure and atrial fibrillation for which he takes both Coumadin and Plavix. Both were stopped 1 week earlier. He denies any allergies, ethanolism, or tobacco. PHYSICAL EXAMINATION: Chest: Clear. Abdomen: Soft. There is no CVA tenderness, no hepatosplenomegaly. Genitalia: Shows normal adult circumcised male. Testes are atraumatic, both in the scrotum. No hernias or hydroceles are elicited. Meatus is adequate. Phallus is normal. His prostate is 1+, firm, and nontender. DIAGNOSTIC DATA: Latest PSA performed on August 15, 2016, revealed to be 0.1. BUN 18, creatinine 0.9. Cystoscopy in the office on August 11, 2016, revealed a papillary bladder mass at the dome of the bladder. This was biopsied, then, a Doe catheter was inserted. 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 PLAN: Patient will be scheduled for transurethral resection of the tumor for both therapeutic and staging purposes. MEDICATIONS AT HOME: Ambien 5 mg, Plavix 75 mg, digoxin 1.25 mcg, Flomax 0.4 mg, Lipitor 20, lisinopril 5, metoprolol 50, and Coumadin 2 mg, which he takes 2 tablets daily, ALLERGIES: Again, there are no known allergies. The patient has had a coronary stent several years ago. He does have a diagnosis of hypertension and dyslipidemia. He denies any alcohol or drug use. Abram [id number]
[2016-08-19] MEDS ORDERED: ZOLPIDEM TARTRATE 5 MG TABLET PO PRN (11:01)
--- NOTE | 2016-08-19 13:13 | OP ---
DATE OF OPERATION: 08/19/2016 OPERATIVE PROCEDURE: 1. Cystourethroscopy. 2. Transurethral resection, bladder tumor. PREOPERATIVE DIAGNOSIS: 1. Hematuria. 2. Bladder tumor. POSTOPERATIVE DIAGNOSIS: 1. Hematuria. 2. Bladder tumor. ANESTHESIA: General. DESCRIPTION OF PROCEDURE: Under above-stated anesthesia, patient was prepped and draped in the usual sterile manner. He was placed in the dorsal lithotomy position. A resectoscope was inserted. Inspection of the bladder revealed a grade 1 trabeculation throughout the bladder. The patient was status post a TURP, and therefore the prosthetic fossa was wide open. The trigone revealed some squamous metaplasia. Ureteral orifices were within normal limits with reflux of clear urine bilaterally. At the level of the right юлия-dome, there appeared to be a papillary hemorrhagic fungating lesion, measuring 3-4 cm in diameter. The monopolar loop was introduced, and the tumor was resected in the usual fashion. Tumor chips were evacuated with an Ellik evacuator. Fulguration was performed for complete hemostasis. Inspection of the bladder revealed no evidence of bleeding. Therefore, the bladder was emptied, and a 20-[place] 10 ml Doe was connected to a drainage bag. The patient tolerated the procedure well. He returned to the recovery room in good condition. Abram [id number]
[2016-08-19] MEDS: METOPROLOL TARTRATE 50 MG TABLET (FP) PO SCH (13:39)
[2016-08-19] MEDS: CEPHALEXIN MONOHYDRATE 500 MG CAPSULE (UD) PO SCH (13:39)
[2016-08-19 15:04] VITALS: BP 153/88; PULSE 78; TEMP 98.4
[2016-08-19] MEDS ORDERED: TAMSULOSIN HCL 0.4 MG CAP.ER.24H (FP) PO SCH (22:00)
[2016-08-20] MEDS ORDERED: LISINOPRIL 5 MG TABLET (FP) PO SCH (10:00)
[2016-08-20] MEDS ORDERED: DIGOXIN 0.125 MG TABLET (FP) PO SCH (10:00)
--- NOTE | 2016-08-22 11:29 | PATH ---
Surgical Pathology Report Patient Name: TAMIKO MARTIN [facility]. Rec. #: [id number] /Age/Gender: 1935 (Age: 81) / M Account: [id number] Location: AMBULATORY SURG Taken: 08/19/2016 Received: 08/19/2016 Reported: 08/22/2016 Physicians: Shelli Zeng M.D. 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 LAMINA PROPRIA INVASION: FOCALLY IDENTIFIED. MUSCULARIS PROPRIA: PRESENT, NOT INVOLVED BY CARCINOMA. LYMPHOVASCULAR INVASION: NOT DEFINITIVELY IDENTIFIED CARCINOMA IN SITU (CIS): NOT DEFINITIVELY IDENTIFIED. Electronically Signed Mervin Cabrales M.D. Gross Description Received in formalin labeled "bladder chips" is a 2.5 x 2.0 x 0.3 cm aggregate of avila soft to firm tissue fragments. The formalin is filtered and the specimen is entirely submitted in one cassette. 08/19/2016 [facility]08/19/2016
== END 2016-08-19 15:42 | disposition home or self-care (01) ==
LOC: JASUSAT 06:24 → JASU-SURG 06:24 → JASUSAT 15:42
PROVIDERS: ATTEND Urology
PROC: 0TBB8ZX Excision of Bladder, Via Natural or Artificial Opening Endoscopic, Diagnostic (ICD-10-PCS; principal; 2016-08-19 08:00)
DX: C67.9 Malignant neoplasm of bladder, unspecified (principal); I10 Essential (primary) hypertension; I48.91 Unspecified atrial fibrillation; Z79.01 Long term (current) use of anticoagulants; Z85.46 Personal history of malignant neoplasm of prostate; Z92.21 Personal history of antineoplastic chemotherapy
CPT/HCPCS: 36415; 85610; 85730; 87086; 88307-TC; 94760

== ENCOUNTER 2017-01-10 19:47 | Emergency (ER) | payer OTHER ==
[2017-01-10 20:08] VITALS: BP 194/140; PULSE 95; TEMP 97.7; BMI 28.1
== END 2017-01-10 20:55 | disposition left against medical advice (07) ==
LOC: JER 19:47
DX: Z53.21 Procedure and treatment not carried out due to patient leaving prior to being seen by health care provider (principal)
CPT/HCPCS: 99281-25

== ENCOUNTER 2018-12-05 09:19 | Day surgery (SDC) | payer OTHER ==
[2018-12-04 16:52] VITALS: BMI 28.5
[~2018-12-05 09:19] MED LIST: ACETAMINOPHEN 325 MG TABLET (FP) PO PRN; CYCLOPENTOLATE HCL 1% OPHTH SOLN 2 ML BOTTLE OP SCH; KETOROLAC TROMETHAMINE 0.5% EYE DROP 1 DROP DROPS OP SCH; OFLOXACIN 0.3% OPHTHALMIC SOLUTION 5 ML BOTTLE OP SCH; PHENYLEPHRINE 2.5% OPHTH SOLN 15 ML BOTTLE OP SCH; PHENYLEPHRINE/KETOROLAC 4 ML VIAL IO ONE; TROPICAMIDE 1% OPHTH SOLN 15 ML BOTTLE OP SCH
[2018-12-05] MEDS ORDERED: CYCLOPENTOLATE HCL 1% OPHTH SOLN 2 ML BOTTLE ONE (10:01)
[2018-12-05] MEDS ORDERED: OFLOXACIN 0.3% OPHTHALMIC SOLUTION 5 ML BOTTLE ONE (10:01)
[2018-12-05] MEDS ORDERED: TROPICAMIDE 1% OPHTH SOLN 15 ML BOTTLE ONE (10:02)
[2018-12-05] MEDS ORDERED: KETOROLAC TROMETHAMINE 0.5% EYE DROP 1 DROP DROPS ONE (10:02)
[2018-12-05] MEDS ORDERED: PHENYLEPHRINE 2.5% OPHTH SOLN 15 ML BOTTLE ONE (10:02)
[2018-12-05] MEDS ORDERED: MIDAZOLAM HCL 2 MG/2 ML SINGLE DOSE VIAL ONE (11:15)
[2018-12-05] MEDS ORDERED: TETRACAINE 0.5% OPHTH SOLN 2 ML BOTTLE OS ONE (11:17)
[2018-12-05] MEDS ORDERED: POVIDONE-IODINE 5% OPHTHALMIC PREP 30 ML SOLUTION OS ONE (11:19)
[2018-12-05] MEDS ORDERED: BSS (NA/CA/MG/K) BALANCED SALT SOLUTION OPHTH SOLN 15 ML BOTTLE OS ONE (11:27)
[2018-12-05] MEDS ORDERED: LIDOCAINE HCL 1% PRESERVATIVE FREE - 30ML VIAL IO ONE (11:27)
[2018-12-05] MEDS ORDERED: CHONDROITIN SU A/HYALUR SOD 1 KIT IO ONE (11:27)
[2018-12-05] MEDS ORDERED: PHENYLEPHRINE/KETOROLAC 4 ML VIAL IO ONE (11:34)
[2018-12-05] MEDS ORDERED: EPINEPHrine/PF 1 MG/1 ML (1:1,000) AMPULE SQ ONE (11:34)
[2018-12-05 13:40] VITALS: TEMP 97.8
[2018-12-05 13:47] VITALS: BP 169/76; PULSE 62
--- NOTE | 2018-12-05 17:51 | SPEC ---
DATE OF OPERATION: 12/05/2018 OPERATION: Phacoemulsification of left cataract, with posterior chamber intraocular lens implantation, left eye. Lens used [id number], 22.5 Diopter power, Serial No. [id number]. PREOPERATIVE DIAGNOSIS: Cataract, left eye. POSTOPERATIVE DIAGNOSIS: Cataract, left eye. SURGEON: Micah Villasenor M.D. ANESTHESIA: Topical MAC. COMPLICATIONS: None. PROCEDURE: The patient was brought to the operating room and correctly identified along with the operative site and the correct intraocular lens durant. The patient was then prepped and draped in the usual sterile fashion including 5% Betadine solution in the conjunctival sac and an eyelid drape. An eyelid speculum was then placed in the eye. A paracentesis port was created and approximately 0.5 mL of preservative free Lidocaine was then injected into the eye. Viscoelastic was then injected to inflate the anterior chamber. A temporal clear corneal wound was created. A continuous circular capsulorrhexis was performed. The nucleus was then hydrodissected with BSS and removed with phacoemulsification. The remaining cortical material was irrigated and aspirated. Viscoelastic was injected to inflate the capsular bag and the intraocular lens was then implanted into the capsular bag. The remaining Viscoelastic was irrigated and aspirated from the eye. The IOL was noted to be well centered and completely covered by the anterior capsulorrhexis. Topical vancomycin was placed and the eye patched and shielded. All wounds were tested and found to be watertight. No suture was placed. The eye was then shielded. The patient was then discharged from the operating room in stable condition. MICAH VILLASENOR M.D. [id number]
== END 2018-12-05 12:40 | disposition home or self-care (01) ==
LOC: JASU-SURG 09:19
PROVIDERS: ATTEND Ophthalmology
PROC: 08RK3JZ Replacement of Left Lens with Synthetic Substitute, Percutaneous Approach (ICD-10-PCS; principal; 2018-12-05 11:00)
DX: H26.9 Unspecified cataract (principal)
CPT/HCPCS: C9447

== ENCOUNTER 2020-07-09 21:44 | Inpatient (IN) | payer OTHER ==
[2020-07-09 23:39] LABS: BASO % 0.5 % (0-2.0); EOS % 0.5 % (0-4.5); HEMATOCRIT 35.5 % (35.4-49); HEMOGLOBIN 11.9 GM/dL (11.7-16.9); LYMPH % 15.3 % (8-40); MCH 31.7 pg (25.7-33.7); MCHC 33.5 g/dl (32.0-35.9); MEAN CELL VOLUME 94.5 fl (80-96); MEAN PLT VOLUME 9.2 fl (7.5-11.1); MONO % 10.2 % (3.8-10.2); NEUT % 73.5 % (42.8-82.8); PLATELET COUNT 175 K/MM3 (134-434); RBC 3.75 M/mm3 (4.00-5.60); RDW 14.7 % (11.9-15.9); WHITE BLOOD COUNT 6.7 K/mm3 (4.0-10.0)
[2020-07-09 23:46] LABS: INR 1.33 (0.83-1.09)
[2020-07-10 00:08] LABS: POTASSIUM 3.9 mmol/L (3.5-5.1)
[2020-07-10 00:10] LABS: ALBUMIN 3.7 g/dl (3.4-5.0); BLOOD UREA NITROGEN 19.9 mg/dL (7-18); CALCIUM 8.9 mg/dL (8.5-10.1); MAGNESIUM 2.1 mg/dL (1.8-2.4)
[2020-07-10 00:14] LABS: CREATININE 1.1 mg/dL (0.55-1.3)
[2020-07-10 00:15] LABS: BILIRUBIN,TOTAL 2.4 mg/dL (0.2-1); TOT PROT 7.2 g/dl (6.4-8.2)
[2020-07-10 00:19] LABS: N-TERMINAL BNP 6067.9 pg/ml (5-450)
[2020-07-10 02:05] LABS: EPI CELLS 14 /uL (0-25.1); HYALINE CASTS 1 /uL (0-3.1); PH,URINE 6.5 (5.0-8.0); URINE APPEARANCE CLEAR; URINE BACTERIA 29 /uL (0-1359); URINE BILIRUBIN NEGATIVE (NEGATIVE); URINE COLOR YELLOW; URINE GLUCOSE (UA) NEGATIVE (NEGATIVE); URINE KETONE NEGATIVE (NEGATIVE); URINE LEUK ESTERASE NEGATIVE (NEGATIVE); URINE NITRITE NEGATIVE (NEGATIVE); URINE PROTEIN 1+ (NEGATIVE); URINE RBC 14 /uL (0-23.9); URINE WBC 17 /uL (0-25.8)
[2020-07-10] MEDS ORDERED: ACETAMINOPHEN 1000 MG/100 ML VIAL (NON FORMULARY) IVPB ONE (02:23)
[2020-07-10] MEDS ORDERED: ACETAMINOPHEN INJECTION 100 ML IVPB ONE (03:03)
[2020-07-10] MEDS ORDERED: metoPROLOL SUCCINATE 25 MG TAB.SR.24H (FP) PO ONE (05:33)
[2020-07-10] MEDS ORDERED: LISINOPRIL 5 MG TABLET PO ONE ×2 (05:33→12:52)
[2020-07-10] MEDS ORDERED: LISINOPRIL 5 MG TABLET ONE ×2 (05:57→09:05)
[2020-07-10] MEDS ORDERED: METOPROLOL TARTRATE 50 MG TABLET (FP) ONE (05:57)
[2020-07-10] MEDS ORDERED: metoPROLOL SUCCINATE 25 MG TAB.SR.24H (FP) ONE (05:58)
[2020-07-10] MEDS: METOPROLOL TARTRATE 50 MG TABLET (FP) PO SCH ×3 (06:03→21:15)
[2020-07-10] MEDS ORDERED: FUROSEMIDE 40 MG/4 ML INJECTABLE VIAL IVPUSH ONE (06:45)
[2020-07-10] MEDS ORDERED: FUROSEMIDE 40 MG/4 ML INJECTABLE VIAL ONE (07:29)
[2020-07-10] MEDS ORDERED: PANTOPRAZOLE SODIUM 40 MG VIAL ONE (09:05)
[2020-07-10] MEDS ORDERED: PANTOPRAZOLE SODIUM 40 MG VIAL IVPUSH SCH (10:00)
[2020-07-10] MEDS ORDERED: LISINOPRIL 5 MG TABLET PO SCH (10:00)
[2020-07-10 12:37] LABS: HEMATOCRIT 37.5 % (35.4-49); MCH 32.1 pg (25.7-33.7); MCHC 34.6 g/dl (32.0-35.9); MEAN CELL VOLUME 92.8 fl (80-96); MEAN PLT VOLUME 8.5 fl (7.5-11.1); PLATELET COUNT 198 K/MM3 (134-434); RBC 4.04 M/mm3 (4.00-5.60); RDW 14.9 % (11.9-15.9); WHITE BLOOD COUNT 8.2 K/mm3 (4.0-10.0)
[2020-07-10 12:52] VITALS: BMI 27.1
[2020-07-10 13:05] LABS: POTASSIUM 3.5 mmol/L (3.5-5.1)
[2020-07-10 13:09] LABS: CALCIUM 8.9 mg/dL (8.5-10.1)
[2020-07-10 13:10] LABS: ALBUMIN 3.8 g/dl (3.4-5.0); BLOOD UREA NITROGEN 16.2 mg/dL (7-18)
[2020-07-10 13:13] LABS: CREATININE 1.1 mg/dL (0.55-1.3)
[2020-07-10 13:15] LABS: BILIRUBIN,TOTAL 3.7 mg/dL (0.2-1); TOT PROT 7.6 g/dl (6.4-8.2)
[2020-07-10] MEDS ORDERED: ASPIRIN 81 MG CHEWABLE TABLETS PO SCH (13:45)
[2020-07-10] MEDS: APIXABAN 5 MG TABLET PO SCH ×2 (15:03→21:15)
[2020-07-10] MEDS ORDERED: ZOLPIDEM TARTRATE 5 MG TABLET PO ONE (22:33)
[2020-07-11] MEDS: METOPROLOL TARTRATE 50 MG TABLET (FP) PO SCH ×3 (05:34→21:08)
[2020-07-11] MEDS ORDERED: PT OWN MED DRAWER 7, Y5N ONE (06:03)
[2020-07-11] MEDS: FAMOTIDINE 20 MG TABLET PO SCH ×2 (09:51→21:09)
[2020-07-11] MEDS: APIXABAN 5 MG TABLET PO SCH ×2 (09:51→23:05)
[2020-07-11] MEDS ORDERED: LISINOPRIL 10 MG TABLET PO SCH (10:00)
[2020-07-11] MEDS ORDERED: PANTOPRAZOLE 20 MG TABLET PO SCH (10:00)
[2020-07-11 10:05] LABS: BASO % 0.6 % (0-2.0); EOS % 0.1 % (0-4.5); HEMATOCRIT 37.2 % (35.4-49); HEMOGLOBIN 12.7 GM/dL (11.7-16.9); LYMPH % 10.9 % (8-40); MCH 31.8 pg (25.7-33.7); MCHC 34.2 g/dl (32.0-35.9); MEAN PLT VOLUME 9.6 fl (7.5-11.1); MONO % 9.2 % (3.8-10.2); NEUT % 79.2 % (42.8-82.8); PLATELET COUNT 188 K/MM3 (134-434); RDW 14.9 % (11.9-15.9); WHITE BLOOD COUNT 9.2 K/mm3 (4.0-10.0)
[2020-07-11 10:31] LABS: ALBUMIN 3.5 g/dl (3.4-5.0); BLOOD UREA NITROGEN 19.7 mg/dL (7-18)
[2020-07-11 10:32] LABS: ALBUMIN 3.5 g/dl (3.4-5.0)
[2020-07-11 10:35] LABS: BILIRUBIN,DIRECT 0.5 mg/dL (0.0-0.2)
[2020-07-11 10:36] LABS: BILIRUBIN,TOTAL 3.7 mg/dL (0.2-1); TOT PROT 7.2 g/dl (6.4-8.2)
[2020-07-11 10:37] LABS: BILIRUBIN,TOTAL 3.4 mg/dL (0.2-1); TOT PROT 7.2 g/dl (6.4-8.2)
[2020-07-11 10:43] LABS: POTASSIUM 3.6 mmol/L (3.5-5.1)
[2020-07-11] MEDS ORDERED: LORazepam 2 MG/ML SDV VIAL IVPB ONE (16:25)
[2020-07-11] MEDS: ACETAMINOPHEN 325 MG TABLET (FP) PO PRN (21:10)
[2020-07-11] MEDS ORDERED: LORazepam 2 MG/ML SDV VIAL IM ONE (21:22)
[2020-07-11] MEDS: QUEtiapine FUMARATE 25 MG TABLET PO SCH (23:05)
[2020-07-12] MEDS: METOPROLOL TARTRATE 50 MG TABLET (FP) PO SCH ×3 (05:03→21:03)
[2020-07-12 09:40] LABS: BASO % 0.6 % (0-2.0); EOS % 0.6 % (0-4.5); HEMATOCRIT 37.2 % (35.4-49); HEMOGLOBIN 12.7 GM/dL (11.7-16.9); LYMPH % 9.9 % (8-40); MCH 31.6 pg (25.7-33.7); MEAN CELL VOLUME 93.1 fl (80-96); MEAN PLT VOLUME 9.3 fl (7.5-11.1); MONO % 8.7 % (3.8-10.2); NEUT % 80.2 % (42.8-82.8); PLATELET COUNT 197 K/MM3 (134-434); WHITE BLOOD COUNT 7.7 K/mm3 (4.0-10.0)
[2020-07-12] MEDS ORDERED: amLODIPine BESYLATE 5 MG TABLET (FP) PO SCH (10:00)
[2020-07-12 10:02] LABS: POTASSIUM 3.3 mmol/L (3.5-5.1)
[2020-07-12 10:05] LABS: ALBUMIN 3.2 g/dl (3.4-5.0); BLOOD UREA NITROGEN 20.5 mg/dL (7-18); CALCIUM 8.5 mg/dL (8.5-10.1)
[2020-07-12 10:08] LABS: CREATININE 0.9 mg/dL (0.55-1.3)
[2020-07-12 10:10] LABS: BILIRUBIN,TOTAL 3.1 mg/dL (0.2-1); TOT PROT 6.9 g/dl (6.4-8.2)
[2020-07-12] MEDS: LISINOPRIL 10 MG TABLET PO SCH (11:16)
[2020-07-12] MEDS: FAMOTIDINE 20 MG TABLET PO SCH ×2 (11:17→21:03)
[2020-07-12] MEDS: APIXABAN 5 MG TABLET PO SCH ×2 (11:17→21:03)
[2020-07-12] MEDS: QUEtiapine FUMARATE 25 MG TABLET PO SCH ×2 (11:17→22:00)
[2020-07-12] MEDS: POTASSIUM CHLORIDE TABS 20 MEQ TABLET.ER (FP) PO ONE ×2 (17:34→18:02)
[2020-07-12] MEDS ORDERED: ZOLPIDEM TARTRATE 5 MG TABLET PO ONE (19:41)
[2020-07-12] MEDS ORDERED: POTASSIUM CHLORIDE ORAL LIQUID 20 MEQ/15 ML PO ONE (19:42)
[2020-07-13] MEDS: METOPROLOL TARTRATE 50 MG TABLET (FP) PO SCH ×3 (06:26→21:15)
[2020-07-13] MEDS ORDERED: ZOLPIDEM TARTRATE 5 MG TABLET PO PRN (08:07)
[2020-07-13] MEDS ORDERED: KCL 10 MEQ IVPB 10 MEQ/100 ML INFUS.BAG IVPB SCH (08:15)
[2020-07-13] MEDS: amLODIPine BESYLATE 10 MG TABLET (FP) PO SCH (09:04)
[2020-07-13] MEDS: LISINOPRIL 10 MG TABLET PO SCH (09:05)
[2020-07-13] MEDS ORDERED: REGADENOSON 0.4 MG/5 ML PRE-FILLED SYRINGE IVPUSH ONE ×2 (10:02→12:15)
[2020-07-13] MEDS: APIXABAN 5 MG TABLET PO SCH ×2 (13:52→21:15)
[2020-07-13] MEDS: QUEtiapine FUMARATE 25 MG TABLET PO SCH ×2 (13:52→21:15)
[2020-07-13] MEDS: FAMOTIDINE 20 MG TABLET PO SCH ×2 (13:52→21:16)
[2020-07-14] MEDS: METOPROLOL TARTRATE 50 MG TABLET (FP) PO SCH ×3 (06:12→21:25)
[2020-07-14 10:37] LABS: HEMATOCRIT 37.9 % (35.4-49); MCHC 34.3 g/dl (32.0-35.9); MEAN CELL VOLUME 93.3 fl (80-96); MEAN PLT VOLUME 8.9 fl (7.5-11.1); PLATELET COUNT 216 K/MM3 (134-434); RBC 4.07 M/mm3 (4.00-5.60); RDW 14.6 % (11.9-15.9); WHITE BLOOD COUNT 9.4 K/mm3 (4.0-10.0)
[2020-07-14] MEDS: amLODIPine BESYLATE 10 MG TABLET (FP) PO SCH (10:38)
[2020-07-14] MEDS: APIXABAN 5 MG TABLET PO SCH ×2 (10:38→21:26)
[2020-07-14] MEDS: LISINOPRIL 10 MG TABLET PO SCH (10:38)
[2020-07-14] MEDS: FAMOTIDINE 20 MG TABLET PO SCH ×2 (10:38→21:26)
[2020-07-14] MEDS: QUEtiapine FUMARATE 25 MG TABLET PO SCH ×2 (10:38→21:26)
[2020-07-14 11:14] LABS: BLOOD UREA NITROGEN 23.1 mg/dL (7-18); MAGNESIUM 2.5 mg/dL (1.8-2.4)
[2020-07-14 11:17] LABS: CREATININE 1.1 mg/dL (0.55-1.3)
[2020-07-14 11:21] LABS: POTASSIUM 3.9 mmol/L (3.5-5.1)
[2020-07-14] MEDS: ACETAMINOPHEN 325 MG TABLET (FP) PO PRN (18:51)
[2020-07-15] MEDS: METOPROLOL TARTRATE 50 MG TABLET (FP) PO SCH (05:11)
[2020-07-15] MEDS ORDERED: CEFUROXIME AXETIL 250 MG TABLET PO SCH (10:00)
[2020-07-15] MEDS: amLODIPine BESYLATE 10 MG TABLET (FP) PO SCH (10:22)
[2020-07-15] MEDS: QUEtiapine FUMARATE 25 MG TABLET PO SCH (10:22)
[2020-07-15] MEDS: APIXABAN 5 MG TABLET PO SCH (10:22)
[2020-07-15] MEDS: FAMOTIDINE 20 MG TABLET PO SCH (10:23)
[2020-07-15] MEDS: LISINOPRIL 10 MG TABLET PO SCH (10:23)
[2020-07-15 14:50] VITALS: BP 149/87; PULSE 107; TEMP 98
== END 2020-07-15 15:41 | DRG 305 ==
LOC: JER 21:44 → JERBED 07-10 03:38 → J7W 07-10 11:14
PROVIDERS: ADMIT Internal Medicine; ATTEND Family Medicine
DX: I16.0 Hypertensive urgency (principal); I24.8 Other forms of acute ischemic heart disease; I50.32 Chronic diastolic (congestive) heart failure; N39.0 Urinary tract infection, site not specified; K92.1 Melena; K92.2 Gastrointestinal hemorrhage, unspecified; I11.0 Hypertensive heart disease with heart failure; R26.81 Unsteadiness on feet; I48.91 Unspecified atrial fibrillation; E78.5 Hyperlipidemia, unspecified; I25.10 Atherosclerotic heart disease of native coronary artery without angina pectoris; R51.9 Headache, unspecified; Z87.891 Personal history of nicotine dependence
CPT/HCPCS: 36415; 70450-TC; 71045-TC-FY; 72125-TC; 74176-TC; 78452-TC; 80048; 80053; 80076; 81003; 82272; 82550; 82553; 82728; 83540; 83550; 83735; 83880; 84484; 85025; 85027; 85610; 85730; 86850; 86900; 86901; 87086; 87186; 93005; 93010; 93017; 93306-TC; 97116-GP; 97161-GP; 99285-25; A9502; C9803; J0131; J2785; U0003

== ENCOUNTER 2021-12-09 18:13 | Inpatient (IN) | payer OTHER ==
[2021-12-09 18:58] VITALS: BMI 25.0
[2021-12-09] MEDS ORDERED: METOPROLOL TARTRATE 5 MG/5 ML VIAL IVPUSH ONE ×2 (19:04→19:30)
[2021-12-09] MEDS ORDERED: METOPROLOL TARTRATE 5 MG/5 ML VIAL ONE ×2 (19:10→19:35)
[2021-12-09 19:32] LABS: HEMATOCRIT 35.7 % (35.4-49); HEMOGLOBIN 11.8 GM/dL (11.7-16.9); MCH 29.9 pg (25.7-33.7); MCHC 33.2 g/dl (32.0-35.9); MEAN PLT VOLUME 8.6 fl (7.5-11.1); PLATELET COUNT 138 10^3/uL (134-434); RBC 3.96 M/mm3 (4.00-5.60); RDW 14.4 % (11.9-15.9); WHITE BLOOD COUNT 4.9 K/mm3 (4.0-10.0)
[2021-12-09 19:38] LABS: INR 1.41 (0.83-1.09); PROTHROMBIN TIME (PATIENT) 16.3 SEC (9.7-13.0)
[2021-12-09 19:41] LABS: ACTIVATED PTT 28.2 SECONDS (25.2-36.5)
[2021-12-09] MEDS ORDERED: METOPROLOL TARTRATE 50 MG TABLET (FP) PO ONE (19:57)
[2021-12-09 20:53] LABS: ALBUMIN 3.5 g/dl (3.4-5.0); CALCIUM 9.2 mg/dL (8.5-10.1)
[2021-12-09 20:54] LABS: BLOOD UREA NITROGEN 23.7 mg/dL (7-18)
[2021-12-09 20:57] LABS: CREATININE 1.3 mg/dL (0.55-1.3)
[2021-12-09 20:58] LABS: BILIRUBIN,TOTAL 2.6 mg/dL (0.2-1)
[2021-12-09 20:59] LABS: ANISOCYTOSIS 0; MACROCYTOSIS 0; OVALOCYTE 1+
[2021-12-09 21:00] LABS: TOT PROT 7.2 g/dl (6.4-8.2)
[2021-12-09 21:45] LABS: MAGNESIUM 1.9 mg/dL (1.8-2.4)
[2021-12-09 23:27] LABS: LACTIC ACID 2.6 mmol/L (0.4-2.0)
[2021-12-10] MEDS ORDERED: METOPROLOL TARTRATE 50 MG TABLET (FP) ONE ×2 (00:01→13:29)
[2021-12-10] MEDS ORDERED: LACTATED RINGERS SOLUTION 1000 ML INFUS.BAG IV ONE (04:49)
[2021-12-10] MEDS ORDERED: TAMSULOSIN HCL 0.4 MG CAP ONE (07:51)
[2021-12-10] MEDS: TAMSULOSIN HCL 0.4 MG CAP PO SCH (08:12)
[2021-12-10] MEDS ORDERED: FAMOTIDINE 20 MG TABLET ONE (09:09)
[2021-12-10] MEDS ORDERED: amLODIPine BESYLATE 10 MG TABLET (FP) ONE ×2 (09:09→13:29)
[2021-12-10] MEDS ORDERED: FAMOTIDINE 20 MG TABLET PO SCH (10:00)
[2021-12-10 13:11] LABS: BASO % 0.1 % (0-2.0); EOS % 0.2 % (0-4.5); HEMATOCRIT 34.7 % (35.4-49); HEMOGLOBIN 11.4 GM/dL (11.7-16.9); LYMPH % 7.3 % (8-40); MCH 29.9 pg (25.7-33.7); MEAN CELL VOLUME 90.6 fl (80-96); MEAN PLT VOLUME 8.4 fl (7.5-11.1); NEUT % 88.4 % (42.8-82.8); PLATELET COUNT 133 10^3/uL (134-434); RBC 3.83 M/mm3 (4.00-5.60); RDW 14.8 % (11.9-15.9); WHITE BLOOD COUNT 9.4 K/mm3 (4.0-10.0)
[2021-12-10 13:17] LABS: INR 1.45 (0.83-1.09); PROTHROMBIN TIME (PATIENT) 16.7 SEC (9.7-13.0)
[2021-12-10 13:50] LABS: CALCIUM 8.9 mg/dL (8.5-10.1)
[2021-12-10 13:51] LABS: ALBUMIN 3.1 g/dl (3.4-5.0); BLOOD UREA NITROGEN 25.1 mg/dL (7-18)
[2021-12-10 13:54] LABS: BILIRUBIN,DIRECT 2.5 mg/dL (0.0-0.2); CREATININE 1.1 mg/dL (0.55-1.3)
[2021-12-10 13:55] LABS: BILIRUBIN,TOTAL 4.4 mg/dL (0.2-1)
[2021-12-10 13:56] LABS: TOT PROT 6.7 g/dl (6.4-8.2)
[2021-12-10] MEDS ORDERED: PIPERACILLIN/TAZOB 2.25 GM 2.25 GM/50 ML BAG IVPB ONE (23:22)
[2021-12-10] MEDS: PIPERACILLIN/TAZOB 2.25 GM 2.25 GM in DEXTROSE 5%-WATER - 50 ML IVPB SCH (23:27)
[2021-12-11] MEDS: DEXTROSE 5%-0.45% SALINE 1,000 ML IV SCH ×2 (00:05→14:36)
[2021-12-11] MEDS ORDERED: PIPERACILLIN/TAZOBACTAM 2.25 GM VIAL IVPB ONE ×3 (04:29→21:20)
[2021-12-11] MEDS ORDERED: DEXTROSE 5%-WATER - 50 ML IVPB ONE ×3 (04:30→21:20)
[2021-12-11] MEDS: METOPROLOL TARTRATE 50 MG TABLET (FP) PO SCH ×3 (06:53→21:47)
[2021-12-11] MEDS: PIPERACILLIN/TAZOB 2.25 GM 2.25 GM in DEXTROSE 5%-WATER - 50 ML IVPB SCH ×3 (06:53→21:46)
[2021-12-11 10:26] LABS: BASO % 0.3 % (0-2.0); EOS % 0.5 % (0-4.5); HEMATOCRIT 32.1 % (35.4-49); HEMOGLOBIN 10.9 GM/dL (11.7-16.9); LYMPH % 5.7 % (8-40); MCH 30.3 pg (25.7-33.7); MCHC 33.9 g/dl (32.0-35.9); MEAN CELL VOLUME 89.5 fl (80-96); MONO % 3.8 % (3.8-10.2); NEUT % 89.7 % (42.8-82.8); PLATELET COUNT 119 10^3/uL (134-434); RBC 3.58 M/mm3 (4.00-5.60); RDW 14.6 % (11.9-15.9); WHITE BLOOD COUNT 8.5 K/mm3 (4.0-10.0)
[2021-12-11 10:34] LABS: INR 1.34 (0.83-1.09); PROTHROMBIN TIME (PATIENT) 15.4 SEC (9.7-13.0)
[2021-12-11] MEDS: APIXABAN 5 MG TABLET PO SCH ×3 (10:34→21:46)
[2021-12-11] MEDS: TAMSULOSIN HCL 0.4 MG CAP PO SCH (10:34)
[2021-12-11] MEDS: amLODIPine BESYLATE 10 MG TABLET (FP) PO SCH ×3 (10:34→14:29)
[2021-12-11 10:55] LABS: BLOOD UREA NITROGEN 24.9 mg/dL (7-18)
[2021-12-11 10:57] LABS: CALCIUM 8.5 mg/dL (8.5-10.1)
[2021-12-11 10:58] LABS: ALBUMIN 3.2 g/dl (3.4-5.0)
[2021-12-11 11:00] LABS: BILIRUBIN,DIRECT 2.5 mg/dL (0.0-0.2); CREATININE 1.1 mg/dL (0.55-1.3)
[2021-12-11 11:01] LABS: TOT PROT 6.3 g/dl (6.4-8.2)
[2021-12-11] MEDS ORDERED: METOPROLOL TARTRATE 5 MG/5 ML VIAL IVPUSH ONE (15:15)
[2021-12-12] MEDS ORDERED: PIPERACILLIN/TAZOBACTAM 2.25 GM VIAL IVPB ONE ×3 (05:45→22:50)
[2021-12-12] MEDS ORDERED: DEXTROSE 5%-WATER - 50 ML IVPB ONE ×3 (05:45→22:50)
[2021-12-12] MEDS: PIPERACILLIN/TAZOB 2.25 GM 2.25 GM in DEXTROSE 5%-WATER - 50 ML IVPB SCH ×3 (06:08→23:00)
[2021-12-12] MEDS: METOPROLOL TARTRATE 50 MG TABLET (FP) PO SCH ×3 (06:08→23:00)
[2021-12-12 08:59] LABS: BASO % 0.4 % (0-2.0); EOS % 0.6 % (0-4.5); HEMATOCRIT 29.7 % (35.4-49); HEMOGLOBIN 10.3 GM/dL (11.7-16.9); LYMPH % 9.7 % (8-40); MCH 30.8 pg (25.7-33.7); MCHC 34.6 g/dl (32.0-35.9); MEAN PLT VOLUME 9.4 fl (7.5-11.1); MONO % 3.7 % (3.8-10.2); NEUT % 85.6 % (42.8-82.8); PLATELET COUNT 119 10^3/uL (134-434); RBC 3.34 M/mm3 (4.00-5.60); RDW 14.5 % (11.9-15.9); WHITE BLOOD COUNT 6.7 K/mm3 (4.0-10.0)
[2021-12-12 09:20] LABS: CALCIUM 8.1 mg/dL (8.5-10.1)
[2021-12-12 09:21] LABS: ALBUMIN 2.7 g/dl (3.4-5.0); BLOOD UREA NITROGEN 19.8 mg/dL (7-18)
[2021-12-12 09:24] LABS: BILIRUBIN,DIRECT 1.6 mg/dL (0.0-0.2); CREATININE 0.9 mg/dL (0.55-1.3)
[2021-12-12] MEDS: TAMSULOSIN HCL 0.4 MG CAP PO SCH (09:24)
[2021-12-12] MEDS: APIXABAN 5 MG TABLET PO SCH ×2 (09:24→23:00)
[2021-12-12] MEDS: amLODIPine BESYLATE 10 MG TABLET (FP) PO SCH ×2 (09:24→09:25)
[2021-12-12] MEDS: DEXTROSE 5%-0.45% SALINE 1,000 ML IV SCH (09:25)
[2021-12-12] MEDS ORDERED: POTASSIUM CHLORIDE TABS 20 MEQ TABLET.ER (FP) PO ONE (10:45)
[2021-12-12] MEDS ORDERED: ACETAMINOPHEN 325 MG TABLET (FP) PO PRN (15:54)
[2021-12-13] MEDS ORDERED: PIPERACILLIN/TAZOBACTAM 2.25 GM VIAL IVPB ONE ×3 (06:23→22:57)
[2021-12-13] MEDS: METOPROLOL TARTRATE 50 MG TABLET (FP) PO SCH ×3 (06:27→22:55)
[2021-12-13] MEDS: PIPERACILLIN/TAZOB 2.25 GM 2.25 GM in DEXTROSE 5%-WATER - 50 ML IVPB SCH ×3 (06:27→22:58)
[2021-12-13 08:18] LABS: BASO % 0.2 % (0-2.0); EOS % 1.5 % (0-4.5); HEMATOCRIT 32.2 % (35.4-49); LYMPH % 12.4 % (8-40); MCH 30.6 pg (25.7-33.7); MCHC 34.2 g/dl (32.0-35.9); MEAN CELL VOLUME 89.3 fl (80-96); MEAN PLT VOLUME 9.4 fl (7.5-11.1); MONO % 7.3 % (3.8-10.2); NEUT % 78.6 % (42.8-82.8); PLATELET COUNT 124 10^3/uL (134-434); RDW 14.3 % (11.9-15.9); WHITE BLOOD COUNT 6.6 K/mm3 (4.0-10.0)
[2021-12-13 08:52] LABS: CALCIUM 8.3 mg/dL (8.5-10.1)
[2021-12-13 08:53] LABS: ALBUMIN 2.6 g/dl (3.4-5.0); BLOOD UREA NITROGEN 13.7 mg/dL (7-18); CREATININE 0.8 mg/dL (0.55-1.3)
[2021-12-13 08:54] LABS: BILIRUBIN,TOTAL 2.6 mg/dL (0.2-1)
[2021-12-13 08:55] LABS: TOT PROT 6.4 g/dl (6.4-8.2)
[2021-12-13 08:56] LABS: BILIRUBIN,DIRECT 1.4 mg/dL (0.0-0.2)
[2021-12-13] MEDS: amLODIPine BESYLATE 10 MG TABLET (FP) PO SCH (09:46)
[2021-12-13] MEDS: APIXABAN 5 MG TABLET PO SCH ×2 (09:47→22:56)
[2021-12-13] MEDS: TAMSULOSIN HCL 0.4 MG CAP PO SCH (09:47)
[2021-12-13] MEDS: DEXTROSE 5%-0.45% SALINE 1,000 ML IV SCH ×2 (09:47→16:30)
[2021-12-13] MEDS ORDERED: DEXTROSE 5%-WATER - 50 ML IVPB ONE ×2 (13:24→22:57)
[2021-12-13 21:06] LABS: GLIADIN ANTIBODY IGA 3 units (0-19); GLIADIN ANTIBODY IGG 2 units (0-19); TRANSGLUTAMINASE IGG 3 U/mL (0-5)
[2021-12-14] MEDS ORDERED: PIPERACILLIN/TAZOBACTAM 2.25 GM VIAL IVPB ONE ×3 (05:08→20:49)
[2021-12-14] MEDS ORDERED: DEXTROSE 5%-WATER - 50 ML IVPB ONE ×3 (05:09→20:50)
[2021-12-14] MEDS: PIPERACILLIN/TAZOB 2.25 GM 2.25 GM in DEXTROSE 5%-WATER - 50 ML IVPB SCH ×3 (06:17→22:09)
[2021-12-14] MEDS: METOPROLOL TARTRATE 50 MG TABLET (FP) PO SCH ×3 (06:17→22:09)
[2021-12-14] MEDS: amLODIPine BESYLATE 10 MG TABLET (FP) PO SCH (09:14)
[2021-12-14] MEDS: TAMSULOSIN HCL 0.4 MG CAP PO SCH (09:14)
[2021-12-14] MEDS: APIXABAN 5 MG TABLET PO SCH (09:14)
[2021-12-14] MEDS ORDERED: PHYTONADIONE 10 MG/1 ML AMP IVPB ONE (12:23)
[2021-12-14] MEDS: URSODIOL 300 MG CAPSULE PO SCH (14:16)
[2021-12-14] MEDS: DEXTROSE 5%-0.45% SALINE 1,000 ML IV SCH (20:30)
[2021-12-14] MEDS ORDERED: ACETAMINOPHEN 325 MG TABLET (FP) PO ONE (23:07)
[2021-12-14] MEDS ORDERED: METHYL SALICYLATE/MENTHOL OINT 30 GM TUBE TP PRN (23:07)
[2021-12-15] MEDS: URSODIOL 300 MG CAPSULE PO SCH ×3 (00:18→21:54)
[2021-12-15] MEDS: CEFAZOLIN SODIUM 2 GM in DEXTROSE 5%-WATER 100 ML IVPB SCH ×3 (02:19→18:14)
[2021-12-15] MEDS: METOPROLOL TARTRATE 50 MG TABLET (FP) PO SCH ×3 (06:47→21:54)
[2021-12-15 08:07] LABS: ALBUMIN 2.6 g/dl (3.4-5.0); BILIRUBIN,DIRECT 0.8 mg/dL (0.0-0.2); BILIRUBIN,TOTAL 1.5 mg/dL (0.2-1); TOT PROT 6.7 g/dl (6.4-8.2)
[2021-12-15] MEDS: TAMSULOSIN HCL 0.4 MG CAP PO SCH (08:46)
[2021-12-15] MEDS: amLODIPine BESYLATE 10 MG TABLET (FP) PO SCH (09:14)
[2021-12-15] MEDS: LIDOCAINE 5% TOPICAL PATCH TP SCH (12:59)
[2021-12-15] MEDS: DEXTROSE 5%-0.45% SALINE 1,000 ML IV SCH (21:55)
[2021-12-15] MEDS: LIDOCAINE PATCH REMOVAL MC SCH (21:56)
[2021-12-16] MEDS: CEFAZOLIN SODIUM 2 GM in DEXTROSE 5%-WATER 100 ML IVPB SCH ×3 (02:00→17:13)
[2021-12-16 07:05] LABS: BASO % 0.8 % (0-2.0); EOS % 1.4 % (0-4.5); HEMOGLOBIN 11.3 GM/dL (11.7-16.9); LYMPH % 14.9 % (8-40); MCH 30.3 pg (25.7-33.7); MCHC 34.3 g/dl (32.0-35.9); MEAN CELL VOLUME 88.3 fl (80-96); MEAN PLT VOLUME 9.1 fl (7.5-11.1); MONO % 10.3 % (3.8-10.2); NEUT % 72.6 % (42.8-82.8); PLATELET COUNT 198 10^3/uL (134-434); RBC 3.74 M/mm3 (4.00-5.60); RDW 14.1 % (11.9-15.9); WHITE BLOOD COUNT 7.1 K/mm3 (4.0-10.0)
[2021-12-16 07:17] LABS: INR 1.16 (0.83-1.09); PROTHROMBIN TIME (PATIENT) 13.4 SEC (9.7-13.0)
[2021-12-16 07:38] LABS: ALBUMIN 2.6 g/dl (3.4-5.0); BLOOD UREA NITROGEN 13.3 mg/dL (7-18); CALCIUM 8.4 mg/dL (8.5-10.1); CREATININE 0.8 mg/dL (0.55-1.3)
[2021-12-16 07:39] LABS: BILIRUBIN,TOTAL 1.4 mg/dL (0.2-1); TOT PROT 6.4 g/dl (6.4-8.2)
[2021-12-16 07:40] LABS: BILIRUBIN,DIRECT 0.6 mg/dL (0.0-0.2)
[2021-12-16] MEDS: TAMSULOSIN HCL 0.4 MG CAP PO SCH (08:29)
[2021-12-16] MEDS: METOPROLOL TARTRATE 50 MG TABLET (FP) PO SCH ×3 (08:30→21:02)
[2021-12-16] MEDS: LIDOCAINE 5% TOPICAL PATCH TP SCH (09:58)
[2021-12-16] MEDS: amLODIPine BESYLATE 10 MG TABLET (FP) PO SCH (09:58)
[2021-12-16] MEDS: URSODIOL 300 MG CAPSULE PO SCH ×2 (09:59→21:02)
[2021-12-16] MEDS: DEXTROSE 5%-0.45% SALINE 1,000 ML IV SCH (09:59)
[2021-12-16] MEDS: LIDOCAINE PATCH REMOVAL MC SCH (22:08)
[2021-12-17] MEDS: DEXTROSE 5%-0.45% SALINE 1,000 ML IV SCH (01:30)
[2021-12-17] MEDS: CEFAZOLIN SODIUM 2 GM in DEXTROSE 5%-WATER 100 ML IVPB SCH ×3 (02:08→18:37)
[2021-12-17] MEDS: METOPROLOL TARTRATE 50 MG TABLET (FP) PO SCH ×3 (06:42→21:01)
[2021-12-17 08:07] LABS: BASO % 0.4 % (0-2.0); EOS % 0.6 % (0-4.5); HEMATOCRIT 33.8 % (35.4-49); HEMOGLOBIN 11.4 GM/dL (11.7-16.9); LYMPH % 12.2 % (8-40); MCHC 33.7 g/dl (32.0-35.9); MEAN PLT VOLUME 9.3 fl (7.5-11.1); MONO % 9.7 % (3.8-10.2); NEUT % 77.1 % (42.8-82.8); PLATELET COUNT 259 10^3/uL (134-434); RBC 3.79 M/mm3 (4.00-5.60); WHITE BLOOD COUNT 9.4 K/mm3 (4.0-10.0)
[2021-12-17 08:17] LABS: INR 1.21 (0.83-1.09); PROTHROMBIN TIME (PATIENT) 13.9 SEC (9.7-13.0)
[2021-12-17 08:30] LABS: BLOOD UREA NITROGEN 16.1 mg/dL (7-18); CALCIUM 8.4 mg/dL (8.5-10.1)
[2021-12-17] MEDS: TAMSULOSIN HCL 0.4 MG CAP PO SCH (08:30)
[2021-12-17 08:31] LABS: ALBUMIN 2.4 g/dl (3.4-5.0)
[2021-12-17 08:33] LABS: BILIRUBIN,DIRECT 0.7 mg/dL (0.0-0.2)
[2021-12-17 08:34] LABS: CREATININE 0.8 mg/dL (0.55-1.3)
[2021-12-17 08:35] LABS: BILIRUBIN,TOTAL 1.4 mg/dL (0.2-1); TOT PROT 6.6 g/dl (6.4-8.2)
[2021-12-17] MEDS: amLODIPine BESYLATE 10 MG TABLET (FP) PO SCH (10:00)
[2021-12-17] MEDS: URSODIOL 300 MG CAPSULE PO SCH ×2 (10:00→21:01)
[2021-12-17] MEDS: LIDOCAINE 5% TOPICAL PATCH TP SCH (10:04)
[2021-12-17] MEDS ORDERED: IOHEXOL 300 MG/ML INFUS..BTL IV ONE (13:15)
[2021-12-17] MEDS ORDERED: LACTATED RINGERS SOLUTION 1,000 ML/1,000 ML INFUS.BAG IV SCH (14:45)
[2021-12-17] MEDS: LIDOCAINE PATCH REMOVAL MC SCH (21:01)
[2021-12-17] MEDS ORDERED: ACETAMINOPHEN 1000 MG/100 ML BAG IVPB ONE (23:56)
[2021-12-18 00:58] VITALS: BP 111/68; PULSE 100; RESP 20; TEMP 98.1
[2021-12-18] MEDS: CEFAZOLIN SODIUM 2 GM in DEXTROSE 5%-WATER 100 ML IVPB SCH (02:06)
== END 2021-12-18 02:00 | disposition short-term general hospital (02) | DRG 445 ==
LOC: JER 18:13 → JERBED 12-10 04:02 → J4W 12-11 00:19
PROVIDERS: ADMIT Internal Medicine; ATTEND Family Medicine
PROC: BF10YZZ Fluoroscopy of Bile Ducts using Other Contrast (ICD-10-PCS; 2021-12-17)
PROC: 0FC98ZZ Extirpation of Matter from Common Bile Duct, Via Natural or Artificial Opening Endoscopic (ICD-10-PCS; principal; 2021-12-17 13:00)
DX: K80.20 Calculus of gallbladder without cholecystitis without obstruction (principal); K80.31 Calculus of bile duct with cholangitis, unspecified, with obstruction; E87.2 Acidosis; R78.81 Bacteremia; I48.91 Unspecified atrial fibrillation; D69.6 Thrombocytopenia, unspecified; I25.119 Atherosclerotic heart disease of native coronary artery with unspecified angina pectoris; E78.5 Hyperlipidemia, unspecified; R74.01 Elevation of levels of liver transaminase levels; Z98.61 Coronary angioplasty status
CPT/HCPCS: 0241U-QW; 36415; 71045-TC-FY; 74177-TC; 74181-TC; 74330-TC; 76705-TC; 80048; 80053; 80076; 80307; 82103; 82784; 83516; 83605; 83690; 83735; 84484; 85025; 85610; 85730; 86038; 86704; 86708; 86709; 86803; 87040; 87186; 87340; 87517; 93005; 93010; 97116-GP; 97162-GP; 99285-25; C9803-CS; U0003; U0005

== ENCOUNTER 2022-08-17 09:59 | Day surgery (SDC) | payer OTHER ==
[~2022-08-17 09:59] MED LIST changes: -ACETAMINOPHEN 325 MG TABLET (FP) PO PRN; -CYCLOPENTOLATE HCL 1% OPHTH SOLN 2 ML BOTTLE OP SCH; -KETOROLAC TROMETHAMINE 0.5% EYE DROP 1 DROP DROPS OP SCH; -OFLOXACIN 0.3% OPHTHALMIC SOLUTION 5 ML BOTTLE OP SCH; +PEMBROLIZUMAB 200 MG in SODIUM CHLORIDE 100 ML IV ONE; -PHENYLEPHRINE 2.5% OPHTH SOLN 15 ML BOTTLE OP SCH; -PHENYLEPHRINE/KETOROLAC 4 ML VIAL IO ONE; +SODIUM CHLORIDE 250 ML IV ONE; -TROPICAMIDE 1% OPHTH SOLN 15 ML BOTTLE OP SCH
[2022-08-17] MEDS ORDERED: PEMBROLIZUMAB 200 MG in SODIUM CHLORIDE 100 ML IV ONE (10:00)
[2022-08-17 10:51] LABS: BASO % 0.4 % (0-2.0); HEMATOCRIT 32.8 % (35.4-49); LYMPH % 19.8 % (8-40); MCH 28.7 pg (25.7-33.7); MCHC 33.5 g/dl (32.0-35.9); MEAN CELL VOLUME 85.6 fl (80-96); MEAN PLT VOLUME 8.1 fl (7.5-11.1); MONO % 8.5 % (3.8-10.2); NEUT % 70.3 % (42.8-82.8); PLATELET COUNT 249 10^3/uL (134-434); RBC 3.83 M/mm3 (4.00-5.60); RDW 15.3 % (11.9-15.9); WHITE BLOOD COUNT 7.6 K/mm3 (4.0-10.0)
[2022-08-17 11:16] LABS: ALBUMIN 3.6 g/dl (3.4-5.0); BLOOD UREA NITROGEN 23.5 mg/dL (7-18); CALCIUM 9.5 mg/dL (8.5-10.1); MAGNESIUM 2.2 mg/dL (1.8-2.4)
[2022-08-17 11:18] LABS: BILIRUBIN,DIRECT 0.2 mg/dL (0.0-0.2)
[2022-08-17 11:19] LABS: CREATININE 1.3 mg/dL (0.55-1.3)
[2022-08-17 11:20] LABS: BILIRUBIN,TOTAL 0.8 mg/dL (0.2-1); TOT PROT 7.7 g/dl (6.4-8.2)
[2022-08-17 15:26] VITALS: TEMP 97.6
[2022-08-17 15:44] VITALS: BP 154/84; PULSE 58; RESP 20
== END 2022-08-17 12:30 | disposition home or self-care (01) ==
LOC: JONCCHEMO 09:59
PROVIDERS: ATTEND Internal Medicine Hematology & Oncology
DX: Z51.11 Encounter for antineoplastic chemotherapy (principal); C90.00 Multiple myeloma not having achieved remission
CPT/HCPCS: 36415; 80048; 80076; 82150; 82533; 83690; 83735; 84439; 84443; 85025; 96413; J9271

== ENCOUNTER 2022-09-07 09:50 | Day surgery (SDC) | payer OTHER ==
[2022-09-07] MEDS ORDERED: SODIUM CHLORIDE 250 ML IV ONE (10:00)
[2022-09-07] MEDS ORDERED: PEMBROLIZUMAB 200 MG in SODIUM CHLORIDE 100 ML IV ONE (10:00)
[2022-09-07 10:41] LABS: BASO % 0.5 % (0-2.0); EOS % 1.5 % (0-4.5); HEMATOCRIT 31.2 % (35.4-49); HEMOGLOBIN 10.7 GM/dL (11.7-16.9); LYMPH % 20.3 % (8-40); MCHC 34.2 g/dl (32.0-35.9); MEAN CELL VOLUME 84.8 fl (80-96); MEAN PLT VOLUME 8.6 fl (7.5-11.1); MONO % 7.5 % (3.8-10.2); NEUT % 70.2 % (42.8-82.8); PLATELET COUNT 238 10^3/uL (134-434); RBC 3.68 M/mm3 (4.00-5.60); RDW 14.7 % (11.9-15.9); WHITE BLOOD COUNT 6.7 K/mm3 (4.0-10.0)
[2022-09-07 10:51] VITALS: RESP 20; TEMP 98.3
[2022-09-07 11:07] LABS: ALBUMIN 3.4 g/dl (3.4-5.0)
[2022-09-07 11:08] LABS: BLOOD UREA NITROGEN 23.3 mg/dL (7-18); CALCIUM 9.5 mg/dL (8.5-10.1); MAGNESIUM 2.3 mg/dL (1.8-2.4)
[2022-09-07 11:09] LABS: BILIRUBIN,DIRECT 0.2 mg/dL (0.0-0.2); CREATININE 1.4 mg/dL (0.55-1.3)
[2022-09-07 11:10] LABS: BILIRUBIN,TOTAL 0.8 mg/dL (0.2-1); TOT PROT 7.5 g/dl (6.4-8.2)
[2022-09-07] MEDS ORDERED: SODIUM CHLORIDE 0.9% 500 ML INFUS.BAG IV ONE (12:30)
[2022-09-07 14:42] VITALS: BP 138/72; PULSE 86
== END 2022-09-07 13:55 | disposition home or self-care (01) ==
LOC: JONCCHEMO 09:50
PROVIDERS: ATTEND Internal Medicine Hematology & Oncology
PROC: 3E03305 Introduction of Other Antineoplastic into Peripheral Vein, Percutaneous Approach (ICD-10-PCS; principal; 2022-09-07)
PROC: 3E0337Z Introduction of Electrolytic and Water Balance Substance into Peripheral Vein, Percutaneous Approach (ICD-10-PCS; 2022-09-07)
DX: Z51.11 Encounter for antineoplastic chemotherapy (principal); C90.00 Multiple myeloma not having achieved remission
CPT/HCPCS: 36415; 80048; 80076; 82150; 82533; 83690; 83735; 84439; 84443; 85025; 96361; 96413; J9271

== ENCOUNTER 2022-09-28 10:12 | Day surgery (SDC) | payer OTHER ==
[2022-09-28 10:50] LABS: BASO % 0.7 % (0-2.0); EOS % 2.2 % (0-4.5); HEMATOCRIT 26.9 % (35.4-49); HEMOGLOBIN 9.3 GM/dL (11.7-16.9); LYMPH % 18.4 % (8-40); MCHC 34.6 g/dl (32.0-35.9); MEAN CELL VOLUME 83.8 fl (80-96); MEAN PLT VOLUME 8.1 fl (7.5-11.1); MONO % 8.1 % (3.8-10.2); NEUT % 70.6 % (42.8-82.8); PLATELET COUNT 211 10^3/uL (134-434); RDW 14.7 % (11.9-15.9)
[2022-09-28 11:09] LABS: POTASSIUM 4.7 mmol/L (3.5-5.1)
[2022-09-28 11:12] LABS: ALBUMIN 3.3 g/dl (3.4-5.0); BLOOD UREA NITROGEN 25.6 mg/dL (7-18); CALCIUM 9.2 mg/dL (8.5-10.1); MAGNESIUM 2.1 mg/dL (1.8-2.4)
[2022-09-28 11:15] LABS: AMYLASE 54 U/L (25-115); BILIRUBIN,DIRECT 0.2 mg/dL (0.0-0.2); CREATININE 1.3 mg/dL (0.55-1.3); LIPASE 141 U/L (73-393)
[2022-09-28 11:17] LABS: BILIRUBIN,TOTAL 0.7 mg/dL (0.2-1); TOT PROT 7.2 g/dl (6.4-8.2)
[2022-09-28 17:10] VITALS: BP 117/57; PULSE 70; RESP 20; TEMP 97.8
== END 2022-09-28 13:10 | disposition home or self-care (01) ==
LOC: JONCCHEMO 10:12 → J7W 10:24 → JONCCHEMO 13:10
PROVIDERS: ATTEND Internal Medicine Hematology & Oncology
DX: Z51.11 Encounter for antineoplastic chemotherapy (principal); C43.9 Malignant melanoma of skin, unspecified; C78.39 Secondary malignant neoplasm of other respiratory organs
CPT/HCPCS: 36415; 80048; 80076; 82150; 82533; 83690; 83735; 84439; 84443; 85025; 96413; J9271

== ENCOUNTER 2022-10-19 11:00 | Day surgery (SDC) | payer OTHER ==
[2022-10-19 12:24] LABS: BASO % 0.9 % (0-2.0); HEMATOCRIT 26.5 % (35.4-49); HEMOGLOBIN 8.8 GM/dL (11.7-16.9); LYMPH % 20.9 % (8-40); MCH 27.4 pg (25.7-33.7); MCHC 33.4 g/dl (32.0-35.9); MEAN CELL VOLUME 82.1 fl (80-96); MEAN PLT VOLUME 8.9 fl (7.5-11.1); MONO % 10.6 % (3.8-10.2); NEUT % 63.6 % (42.8-82.8); PLATELET COUNT 254 10^3/uL (134-434); RBC 3.23 M/mm3 (4.00-5.60); RDW 14.6 % (11.9-15.9); WHITE BLOOD COUNT 6.6 K/mm3 (4.0-10.0)
[2022-10-19 12:43] LABS: POTASSIUM 5.3 mmol/L (3.5-5.1)
[2022-10-19 12:44] LABS: LIPASE 202 U/L (73-393)
[2022-10-19 12:45] LABS: AMYLASE 58 U/L (25-115)
[2022-10-19 12:46] LABS: BLOOD UREA NITROGEN 18.3 mg/dL (7-18)
[2022-10-19 12:47] LABS: ALBUMIN 3.4 g/dl (3.4-5.0); MAGNESIUM 2.2 mg/dL (1.8-2.4)
[2022-10-19 12:49] LABS: BILIRUBIN,DIRECT 0.2 mg/dL (0.0-0.2)
[2022-10-19 12:51] LABS: BILIRUBIN,TOTAL 0.6 mg/dL (0.2-1); CREATININE 1.2 mg/dL (0.55-1.3); TOT PROT 7.2 g/dl (6.4-8.2)
[2022-10-19 17:00] VITALS: BP 127/80; PULSE 84; RESP 20; TEMP 97.4
== END 2022-10-19 14:50 | disposition home or self-care (01) ==
LOC: JONCCHEMO 11:00 → J7W 11:12 → JONCCHEMO 14:50
PROVIDERS: ATTEND Internal Medicine Hematology & Oncology
DX: Z51.11 Encounter for antineoplastic chemotherapy (principal); C43.9 Malignant melanoma of skin, unspecified; C78.39 Secondary malignant neoplasm of other respiratory organs
CPT/HCPCS: 36415; 80048; 80076; 82150; 82533; 83690; 83735; 84439; 84443; 85025; 96413; J9271

== ENCOUNTER 2022-11-09 09:50 | Day surgery (SDC) | payer OTHER ==
[2022-11-09] MEDS ORDERED: SODIUM CHLORIDE 250 ML IV ONE (10:00)
[2022-11-09] MEDS ORDERED: PEMBROLIZUMAB 200 MG in SODIUM CHLORIDE 100 ML IV ONE (10:00)
[2022-11-09 10:28] LABS: BASO % 0.7 % (0-2.0); EOS % 1.9 % (0-4.5); HEMATOCRIT 25.3 % (35.4-49); HEMOGLOBIN 8.2 GM/dL (11.7-16.9); LYMPH % 15.7 % (8-40); MCH 25.7 pg (25.7-33.7); MCHC 32.6 g/dl (32.0-35.9); MEAN CELL VOLUME 78.7 fl (80-96); MEAN PLT VOLUME 7.5 fl (7.5-11.1); MONO % 9.6 % (3.8-10.2); NEUT % 72.1 % (42.8-82.8); PLATELET COUNT 331 10^3/uL (134-434); RBC 3.21 M/mm3 (4.00-5.60); RDW 15.2 % (11.9-15.9); WHITE BLOOD COUNT 6.4 K/mm3 (4.0-10.0)
[2022-11-09 10:44] LABS: POTASSIUM 4.8 mmol/L (3.5-5.1)
[2022-11-09 10:46] LABS: BLOOD UREA NITROGEN 20.6 mg/dL (7-18); MAGNESIUM 2.3 mg/dL (1.8-2.4)
[2022-11-09 10:47] LABS: ALBUMIN 2.8 g/dl (3.4-5.0)
[2022-11-09 10:49] LABS: BILIRUBIN,DIRECT 0.2 mg/dL (0.0-0.2)
[2022-11-09 10:50] LABS: CREATININE 1.2 mg/dL (0.55-1.3)
[2022-11-09 10:51] LABS: BILIRUBIN,TOTAL 0.6 mg/dL (0.2-1)
[2022-11-09 10:52] LABS: TOT PROT 6.9 g/dl (6.4-8.2)
[2022-11-09 18:36] VITALS: BP 114/62; PULSE 87; RESP 18; TEMP 97.6
[2022-11-09 19:01] LABS: BASO % 0.4 % (0-2.0); EOS % 2.8 % (0-4.5); HEMATOCRIT 26.9 % (35.4-49); HEMOGLOBIN 8.7 GM/dL (11.7-16.9); MCH 25.8 pg (25.7-33.7); MCHC 32.3 g/dl (32.0-35.9); MONO % 9.1 % (3.8-10.2); NEUT % 71.7 % (42.8-82.8); PLATELET COUNT 312 10^3/uL (134-434); RBC 3.36 M/mm3 (4.00-5.60); RDW 15.6 % (11.9-15.9); WHITE BLOOD COUNT 7.5 K/mm3 (4.0-10.0)
== END 2022-11-09 18:15 | disposition home or self-care (01) ==
LOC: JONCCHEMO 09:50 → J7W 09:54 → JONCCHEMO 18:15
PROVIDERS: ATTEND Internal Medicine Hematology & Oncology
PROC: 3E03305 Introduction of Other Antineoplastic into Peripheral Vein, Percutaneous Approach (ICD-10-PCS; principal; 2022-11-09)
PROC: 30233N1 Transfusion of Nonautologous Red Blood Cells into Peripheral Vein, Percutaneous Approach (ICD-10-PCS; 2022-11-09)
DX: Z51.11 Encounter for antineoplastic chemotherapy (principal); C30.0 Malignant neoplasm of nasal cavity; C78.39 Secondary malignant neoplasm of other respiratory organs; D64.9 Anemia, unspecified
CPT/HCPCS: 36415; 36430; 80048; 80076; 82150; 82533; 82728; 83540; 83550; 83690; 83735; 84439; 84443; 85025; 86850; 86900; 86901; 86922; 96413; J9271; P9058

== ENCOUNTER 2022-11-30 09:45 | Day surgery (SDC) | payer OTHER ==
[~2022-11-30 09:45] MED LIST changes: -PEMBROLIZUMAB 200 MG in SODIUM CHLORIDE 100 ML IV ONE
[2022-11-30] MEDS ORDERED: PEMBROLIZUMAB 200 MG in SODIUM CHLORIDE 100 ML IV ONE (10:00)
[2022-11-30 10:28] LABS: BASO % 0.7 % (0-2.0); EOS % 2.8 % (0-4.5); HEMATOCRIT 27.5 % (35.4-49); HEMOGLOBIN 8.8 GM/dL (11.7-16.9); LYMPH % 17.1 % (8-40); MCH 25.6 pg (25.7-33.7); MCHC 31.9 g/dl (32.0-35.9); MEAN CELL VOLUME 80.4 fl (80-96); MEAN PLT VOLUME 8.2 fl (7.5-11.1); MONO % 8.1 % (3.8-10.2); NEUT % 71.3 % (42.8-82.8); PLATELET COUNT 299 10^3/uL (134-434); RBC 3.42 M/mm3 (4.00-5.60); RDW 16.2 % (11.9-15.9); WHITE BLOOD COUNT 6.3 K/mm3 (4.0-10.0)
[2022-11-30 11:10] LABS: POTASSIUM 4.9 mmol/L (3.5-5.1)
[2022-11-30 11:12] LABS: CALCIUM 9.1 mg/dL (8.5-10.1)
[2022-11-30 11:13] LABS: ALBUMIN 2.9 g/dl (3.4-5.0); MAGNESIUM 2.3 mg/dL (1.8-2.4)
[2022-11-30 11:16] LABS: CREATININE 1.4 mg/dL (0.55-1.3)
[2022-11-30 11:17] LABS: BILIRUBIN,TOTAL 0.7 mg/dL (0.2-1)
[2022-11-30 11:18] LABS: TOT PROT 6.7 g/dl (6.4-8.2)
[2022-11-30 17:49] VITALS: BP 117/67; PULSE 85; RESP 18; TEMP 97.6
== END 2022-11-30 13:20 | disposition home or self-care (01) ==
LOC: JONCCHEMO 09:45 → J7W 09:46 → JONCCHEMO 13:20
PROVIDERS: ATTEND Internal Medicine Hematology & Oncology
DX: Z51.11 Encounter for antineoplastic chemotherapy (principal); C30.0 Malignant neoplasm of nasal cavity; C78.39 Secondary malignant neoplasm of other respiratory organs
CPT/HCPCS: 36415; 80053; 82150; 82533; 83690; 83735; 84439; 84443; 85025; 96365; J9271

== ENCOUNTER 2022-12-21 10:02 | Day surgery (SDC) | payer OTHER ==
[~2022-12-21 10:02] MED LIST changes: +PEMBROLIZUMAB 200 MG in SODIUM CHLORIDE 100 ML IV ONE
[2022-12-21 11:32] LABS: BASO % 0.5 % (0-2.0); EOS % 1.5 % (0-4.5); HEMATOCRIT 27.5 % (35.4-49); HEMOGLOBIN 8.9 GM/dL (11.7-16.9); LYMPH % 15.4 % (8-40); MCH 24.9 pg (25.7-33.7); MCHC 32.4 g/dl (32.0-35.9); MEAN CELL VOLUME 76.9 fl (80-96); MONO % 9.5 % (3.8-10.2); NEUT % 73.1 % (42.8-82.8); PLATELET COUNT 332 10^3/uL (134-434); RBC 3.58 M/mm3 (4.00-5.60); WHITE BLOOD COUNT 6.7 K/mm3 (4.0-10.0)
[2022-12-21 11:57] LABS: POTASSIUM 4.9 mmol/L (3.5-5.1)
[2022-12-21 12:00] LABS: ALBUMIN 2.6 g/dl (3.4-5.0); BLOOD UREA NITROGEN 20.4 mg/dL (7-18); CALCIUM 8.9 mg/dL (8.5-10.1); MAGNESIUM 2.2 mg/dL (1.8-2.4)
[2022-12-21 12:03] LABS: CREATININE 1.1 mg/dL (0.55-1.3)
[2022-12-21 12:04] LABS: BILIRUBIN,TOTAL 0.7 mg/dL (0.2-1); TOT PROT 6.8 g/dl (6.4-8.2)
[2022-12-21 15:24] VITALS: BP 115/59; PULSE 94; RESP 18; TEMP 98.3
== END 2022-12-21 14:15 | disposition home or self-care (01) ==
LOC: JONCCHEMO 10:02 → J7W 10:14 → JONCCHEMO 14:15
PROVIDERS: ATTEND Internal Medicine Hematology & Oncology
DX: Z51.11 Encounter for antineoplastic chemotherapy (principal); C43.9 Malignant melanoma of skin, unspecified; C79.9 Secondary malignant neoplasm of unspecified site
CPT/HCPCS: 36415; 80053; 82150; 82533; 83690; 83735; 84436; 84439; 84443; 85025; 96413; J9271

== ENCOUNTER 2023-01-11 09:48 | Day surgery (SDC) | payer OTHER ==
[2023-01-11] MEDS ORDERED: PEMBROLIZUMAB 200 MG in SODIUM CHLORIDE 100 ML IV ONE (10:00)
[2023-01-11] MEDS ORDERED: SODIUM CHLORIDE 250 ML IV ONE (10:00)
[2023-01-11 10:23] LABS: BASO % 0.7 % (0-2.0); EOS % 0.7 % (0-4.5); HEMATOCRIT 27.6 % (35.4-49); MCH 24.5 pg (25.7-33.7); MCHC 32.5 g/dl (32.0-35.9); MEAN CELL VOLUME 75.3 fl (80-96); MEAN PLT VOLUME 7.6 fl (7.5-11.1); MONO % 8.2 % (3.8-10.2); NEUT % 78.4 % (42.8-82.8); PLATELET COUNT 441 10^3/uL (134-434); RBC 3.67 M/mm3 (4.00-5.60); RDW 17.3 % (11.9-15.9); WHITE BLOOD COUNT 7.7 K/mm3 (4.0-10.0)
[2023-01-11 11:16] LABS: POTASSIUM 5.2 mmol/L (3.5-5.1)
[2023-01-11 11:19] LABS: ALBUMIN 2.5 g/dl (3.4-5.0); BLOOD UREA NITROGEN 19.5 mg/dL (7-18); CALCIUM 8.8 mg/dL (8.5-10.1); MAGNESIUM 2.3 mg/dL (1.8-2.4)
[2023-01-11 11:22] LABS: CREATININE 1.3 mg/dL (0.55-1.3)
[2023-01-11 11:23] LABS: BILIRUBIN,TOTAL 0.7 mg/dL (0.2-1)
[2023-01-11 16:13] VITALS: TEMP 98
[2023-01-11 16:25] VITALS: BP 103/55; PULSE 99; RESP 18
== END 2023-01-11 13:50 | disposition home or self-care (01) ==
LOC: J7W 09:48 → JONCCHEMO 09:48
PROVIDERS: ATTEND Internal Medicine Hematology & Oncology
DX: Z51.11 Encounter for antineoplastic chemotherapy (principal); C43.9 Malignant melanoma of skin, unspecified; C30.0 Malignant neoplasm of nasal cavity
CPT/HCPCS: 36415; 80053; 82150; 82533; 82977; 83690; 83735; 84436; 84443; 85025; 96413; J9271

== ENCOUNTER 2023-02-01 08:19 | Day surgery (SDC) | payer OTHER ==
[2023-02-01] MEDS ORDERED: SODIUM CHLORIDE 250 ML IV ONE (09:30)
[2023-02-01 09:47] LABS: BASO % 0.8 % (0-2.0); EOS % 1.3 % (0-4.5); HEMATOCRIT 27.1 % (35.4-49); HEMOGLOBIN 8.9 GM/dL (11.7-16.9); LYMPH % 11.5 % (8-40); MCH 24.3 pg (25.7-33.7); MCHC 32.7 g/dl (32.0-35.9); MEAN CELL VOLUME 74.3 fl (80-96); MEAN PLT VOLUME 8.2 fl (7.5-11.1); MONO % 8.6 % (3.8-10.2); NEUT % 77.8 % (42.8-82.8); PLATELET COUNT 371 10^3/uL (134-434); RBC 3.65 M/mm3 (4.00-5.60); RDW 18.3 % (11.9-15.9); WHITE BLOOD COUNT 6.9 K/mm3 (4.0-10.0)
[2023-02-01] MEDS ORDERED: PEMBROLIZUMAB 200 MG in SODIUM CHLORIDE 100 ML IV ONE (10:00)
[2023-02-01 10:12] LABS: ALBUMIN 2.5 g/dl (3.4-5.0)
[2023-02-01 10:15] LABS: BILIRUBIN,DIRECT 0.3 mg/dL (0.0-0.2)
[2023-02-01 10:17] LABS: BILIRUBIN,TOTAL 0.6 mg/dL (0.2-1); TOT PROT 6.7 g/dl (6.4-8.2)
[2023-02-01 15:31] VITALS: BP 102/53; PULSE 66; RESP 18; TEMP 98.2
== END 2023-02-01 10:30 | disposition home or self-care (01) ==
LOC: JONCCHEMO 08:19 → J7W 08:20 → JONCCHEMO 10:30
PROVIDERS: ATTEND Internal Medicine Hematology & Oncology
DX: Z51.11 Encounter for antineoplastic chemotherapy (principal); C43.9 Malignant melanoma of skin, unspecified; C30.0 Malignant neoplasm of nasal cavity
CPT/HCPCS: 36415; 80076; 85025; 96413; J9271

== ENCOUNTER 2023-03-15 10:07 | Day surgery (SDC) | payer OTHER ==
[2023-03-15] MEDS ORDERED: SODIUM CHLORIDE 250 ML IV ONE (11:00)
[2023-03-15 11:21] LABS: BASO % 0.8 % (0-2.0); EOS % 2.3 % (0-4.5); LYMPH % 18.1 % (8-40); MCH 24.9 pg (25.7-33.7); MCHC 33.2 g/dl (32.0-35.9); MEAN CELL VOLUME 75.1 fl (80-96); MEAN PLT VOLUME 8.4 fl (7.5-11.1); MONO % 9.3 % (3.8-10.2); NEUT % 69.5 % (42.8-82.8); PLATELET COUNT 351 10^3/uL (134-434); RDW 19.6 % (11.9-15.9); WHITE BLOOD COUNT 6.1 K/mm3 (4.0-10.0)
[2023-03-15] MEDS ORDERED: PEMBROLIZUMAB 200 MG in SODIUM CHLORIDE 100 ML IV ONE (11:30)
[2023-03-15 11:31] LABS: POTASSIUM 4.7 mmol/L (3.5-5.1)
[2023-03-15 11:34] LABS: ALBUMIN 2.5 g/dl (3.4-5.0); BLOOD UREA NITROGEN 13.7 mg/dL (7-18)
[2023-03-15 11:35] LABS: CALCIUM 9.2 mg/dL (8.5-10.1); MAGNESIUM 2.1 mg/dL (1.8-2.4)
[2023-03-15 11:38] LABS: TOT PROT 6.9 g/dl (6.4-8.2)
[2023-03-15 18:28] VITALS: BP 106/61; PULSE 78; RESP 18; TEMP 97.9
== END 2023-03-15 14:10 | disposition home or self-care (01) ==
LOC: JONCCHEMO 10:07 → J7W 10:11 → JONCCHEMO 14:10
PROVIDERS: ATTEND Internal Medicine Hematology & Oncology
DX: Z51.11 Encounter for antineoplastic chemotherapy (principal); C43.9 Malignant melanoma of skin, unspecified
CPT/HCPCS: 36415; 80053; 82150; 82533; 83690; 83735; 84436; 84439; 84443; 85025; 96413; J9271

== ENCOUNTER 2023-04-05 10:27 | Day surgery (SDC) | payer OTHER ==
[2023-04-05 11:05] LABS: EOS % 2.3 % (0-4.5); HEMATOCRIT 29.1 % (35.4-49); HEMOGLOBIN 9.2 GM/dL (11.7-16.9); LYMPH % 21.4 % (8-40); MCH 24.5 pg (25.7-33.7); MCHC 31.6 g/dl (32.0-35.9); MEAN CELL VOLUME 77.4 fl (80-96); MEAN PLT VOLUME 8.1 fl (7.5-11.1); MONO % 9.3 % (3.8-10.2); PLATELET COUNT 330 10^3/uL (134-434); RBC 3.75 M/mm3 (4.00-5.60); RDW 20.2 % (11.9-15.9); WHITE BLOOD COUNT 5.6 K/mm3 (4.0-10.0)
[2023-04-05 11:15] LABS: POTASSIUM 4.3 mmol/L (3.5-5.1)
[2023-04-05 11:20] LABS: CALCIUM 8.7 mg/dL (8.5-10.1)
[2023-04-05 11:21] LABS: ALBUMIN 2.5 g/dl (3.4-5.0); MAGNESIUM 2.3 mg/dL (1.8-2.4)
[2023-04-05 11:23] LABS: CREATININE 1.2 mg/dL (0.55-1.3)
[2023-04-05 11:26] LABS: BILIRUBIN,TOTAL 1.2 mg/dL (0.2-1)
[2023-04-05 17:03] VITALS: BP 122/65; PULSE 101; RESP 18; TEMP 97.7
== END 2023-04-05 13:25 | disposition home or self-care (01) ==
LOC: JONCCHEMO 10:27 → J7W 10:28 → JONCCHEMO 13:25
PROVIDERS: ATTEND Internal Medicine Hematology & Oncology
DX: Z51.11 Encounter for antineoplastic chemotherapy (principal); C43.9 Malignant melanoma of skin, unspecified
CPT/HCPCS: 36415; 80053; 82150; 82533; 83690; 83735; 84439; 84443; 85025; 96413; J9271

== ENCOUNTER 2023-04-26 09:49 | Day surgery (SDC) | payer OTHER ==
[~2023-04-26 09:49] MED LIST changes: +IRON SUCROSE INJECTION 200 MG in SODIUM CHLORIDE 100 ML IVPB ONE; -PEMBROLIZUMAB 200 MG in SODIUM CHLORIDE 100 ML IV ONE
[2023-04-26] MEDS ORDERED: PEMBROLIZUMAB 200 MG in SODIUM CHLORIDE 100 ML IV ONE (10:00)
[2023-04-26 10:28] LABS: BASO % 0.5 % (0-2.0); EOS % 0.4 % (0-4.5); HEMATOCRIT 30.3 % (35.4-49); HEMOGLOBIN 9.3 GM/dL (11.7-16.9); LYMPH % 16.4 % (8-40); MCH 23.7 pg (25.7-33.7); MCHC 30.8 g/dl (32.0-35.9); MEAN PLT VOLUME 8.4 fl (7.5-11.1); NEUT % 74.7 % (42.8-82.8); PLATELET COUNT 264 10^3/uL (134-434); RBC 3.94 M/mm3 (4.00-5.60); RDW 20.3 % (11.9-15.9); WHITE BLOOD COUNT 5.1 K/mm3 (4.0-10.0)
[2023-04-26 10:58] LABS: POTASSIUM 3.8 mmol/L (3.5-5.1)
[2023-04-26 11:02] LABS: ALBUMIN 2.5 g/dl (3.4-5.0); BLOOD UREA NITROGEN 16.2 mg/dL (7-18); CALCIUM 8.3 mg/dL (8.5-10.1); MAGNESIUM 2.1 mg/dL (1.8-2.4)
[2023-04-26 11:06] LABS: BILIRUBIN,TOTAL 1.4 mg/dL (0.2-1); TOT PROT 6.9 g/dl (6.4-8.2)
[2023-04-26 15:19] VITALS: BP 134/75; PULSE 103; RESP 18; TEMP 97.5
== END 2023-04-26 14:25 | disposition home or self-care (01) ==
LOC: JONCCHEMO 09:49 → J7W 09:50 → JONCCHEMO 14:25
PROVIDERS: ATTEND Internal Medicine Hematology & Oncology
PROC: 3E03305 Introduction of Other Antineoplastic into Peripheral Vein, Percutaneous Approach (ICD-10-PCS; principal; 2023-04-26)
PROC: 3E033GC Introduction of Other Therapeutic Substance into Peripheral Vein, Percutaneous Approach (ICD-10-PCS; 2023-04-26)
PROC: 3E0337Z Introduction of Electrolytic and Water Balance Substance into Peripheral Vein, Percutaneous Approach (ICD-10-PCS; 2023-04-26)
DX: Z51.11 Encounter for antineoplastic chemotherapy (principal); C43.9 Malignant melanoma of skin, unspecified; E61.1 Iron deficiency; D64.9 Anemia, unspecified
CPT/HCPCS: 36415; 80053; 82150; 82533; 83690; 83735; 84439; 84443; 85025; 96367; 96413; J1756; J9271

== ENCOUNTER 2023-04-29 17:38 | Inpatient (IN) | payer OTHER ==
[2023-04-29 19:09] LABS: BASO % 0.2 % (0-2.0); EOS % 0.2 % (0-4.5); HEMATOCRIT 26.1 % (35.4-49); HEMOGLOBIN 8.4 GM/dL (11.7-16.9); LYMPH % 5.5 % (8-40); MCH 24.7 pg (25.7-33.7); MCHC 32.1 g/dl (32.0-35.9); MEAN CELL VOLUME 76.9 fl (80-96); MEAN PLT VOLUME 8.3 fl (7.5-11.1); NEUT % 90.1 % (42.8-82.8); PLATELET COUNT 203 10^3/uL (134-434); RBC 3.39 M/mm3 (4.00-5.60); RDW 20.4 % (11.9-15.9); WHITE BLOOD COUNT 5.8 K/mm3 (4.0-10.0)
[2023-04-29 19:19] LABS: INR 1.27 (0.83-1.09); PROTHROMBIN TIME (PATIENT) 14.7 SEC (9.7-13.0)
[2023-04-29 19:22] LABS: ACTIVATED PTT 33.2 SECONDS (25.2-36.5)
[2023-04-29 19:30] LABS: POTASSIUM 3.2 mmol/L (3.5-5.1)
[2023-04-29 19:32] LABS: CALCIUM 7.8 mg/dL (8.5-10.1)
[2023-04-29 19:33] LABS: ALBUMIN 2.4 g/dl (3.4-5.0); BLOOD UREA NITROGEN 11.5 mg/dL (7-18); MAGNESIUM 1.8 mg/dL (1.8-2.4)
[2023-04-29 19:36] LABS: CREATININE 0.9 mg/dL (0.55-1.3)
[2023-04-29] MEDS ORDERED: VANCOMYCIN 1,000 MG in DEXTROSE 5%-WATER - 250 ML IVPB ONE (19:36)
[2023-04-29] MEDS ORDERED: PIPERACILLIN/TAZOB 3.375 GM 3.375 GM in DEXTROSE 5%-WATER - 50 ML IVPB ONE (19:36)
[2023-04-29 19:37] LABS: BILIRUBIN,TOTAL 1.2 mg/dL (0.2-1); TOT PROT 6.3 g/dl (6.4-8.2)
[2023-04-29] MEDS ORDERED: PIPERACILLIN/TAZOB 3.375 GM 3.375 GM/50 ML BAG IVPB ONE (19:40)
[2023-04-29] MEDS ORDERED: ASPIRIN 81 MG CHEWABLE TABLETS PO ONE (20:02)
[2023-04-29] MEDS ORDERED: VANCOMYCIN 1 GRAM (PRE-DOCKED) 1,000 MG/250 ML BAG IVPB ONE (21:21)
[2023-04-29] MEDS ORDERED: POTASSIUM CHLORIDE ORAL LIQUID 20 MEQ/15 ML PO ONE (21:44)
[2023-04-29] MEDS ORDERED: POTASSIUM CHLORIDE ORAL LIQUID 20 MEQ/15 ML ONE (22:16)
[2023-04-29] MEDS ORDERED: DEXAMETHASONE 4 MG TABLET (FP) PO SCH (23:45)
[2023-04-29] MEDS ORDERED: VANCOMYCIN 1,000 MG in DEXTROSE 5%-WATER - 250 ML IVPB SCH (23:45)
[2023-04-30] MEDS ORDERED: APIXABAN 5 MG TABLET ONE ×3 (00:06→22:05)
[2023-04-30] MEDS ORDERED: MELATONIN 5 MG TABLETS ONE ×2 (00:06→22:05)
[2023-04-30] MEDS ORDERED: DEXAMETHASONE 4 MG TABLET (FP) ONE ×2 (00:07→10:25)
[2023-04-30] MEDS: APIXABAN 5 MG TABLET PO SCH ×3 (00:10→22:26)
[2023-04-30] MEDS: MELATONIN 5 MG TABLETS PO PRN ×2 (00:10→22:26)
[2023-04-30] MEDS ORDERED: REMDESIVIR 200 MG in SODIUM CHLORIDE 250 ML IVPB ONE (02:00)
[2023-04-30] MEDS: PIPERACILLIN/TAZOB 3.375 GM 3.375 GM in DEXTROSE 5%-WATER - 50 ML IVPB SCH ×4 (04:00→20:18)
[2023-04-30] MEDS ORDERED: PIPERACILLIN/TAZOB 3.375 GM 3.375 GM/50 ML BAG IVPB ONE ×3 (04:00→20:07)
[2023-04-30 05:16] LABS: EPI CELLS 7 /uL (0-25.1); HYALINE CASTS 1 /uL (0-3.1); PH,URINE 5.5 (5.0-8.0); URINE APPEARANCE TURBID; URINE BACTERIA 1806 /uL (0-1359); URINE BILIRUBIN NEGATIVE (NEGATIVE); URINE COLOR DK YELLOW; URINE GLUCOSE (UA) NEGATIVE (NEGATIVE); URINE KETONE NEGATIVE (NEGATIVE); URINE LEUK ESTERASE 3+ (NEGATIVE); URINE NITRITE POSITIVE (NEGATIVE); URINE PROTEIN 1+ (NEGATIVE); URINE RBC 98 /uL (0-23.9); URINE WBC 5894 /uL (0-25.8)
[2023-04-30] MEDS: REMDESIVIR 100 MG in SODIUM CHLORIDE 250 ML IVPB SCH (06:15)
[2023-04-30] MEDS: METOPROLOL TARTRATE 50 MG TABLET (FP) PO SCH ×3 (06:22→22:26)
[2023-04-30] MEDS ORDERED: METOPROLOL TARTRATE 50 MG TABLET (FP) ONE ×3 (06:22→22:05)
[2023-04-30 06:39] LABS: POTASSIUM 3.7 mmol/L (3.5-5.1)
[2023-04-30 06:41] LABS: ALBUMIN 2.2 g/dl (3.4-5.0); BLOOD UREA NITROGEN 12.3 mg/dL (7-18); CALCIUM 7.9 mg/dL (8.5-10.1)
[2023-04-30 06:44] LABS: CREATININE 0.8 mg/dL (0.55-1.3); PHOSPHOROUS 2.7 mg/dL (2.5-4.9)
[2023-04-30 06:46] LABS: BILIRUBIN,TOTAL 1.1 mg/dL (0.2-1); TOT PROT 6.2 g/dl (6.4-8.2)
[2023-04-30 06:54] LABS: BASO % 0.2 % (0-2.0); HEMOGLOBIN 8.9 GM/dL (11.7-16.9); LYMPH % 7.7 % (8-40); MCH 24.6 pg (25.7-33.7); MCHC 31.7 g/dl (32.0-35.9); MEAN CELL VOLUME 77.5 fl (80-96); MEAN PLT VOLUME 8.5 fl (7.5-11.1); MONO % 1.9 % (3.8-10.2); NEUT % 90.2 % (42.8-82.8); PLATELET COUNT 209 10^3/uL (134-434); RBC 3.61 M/mm3 (4.00-5.60); RDW 20.3 % (11.9-15.9); WHITE BLOOD COUNT 4.6 K/mm3 (4.0-10.0)
[2023-04-30 06:58] LABS: INR 1.47 (0.83-1.09)
[2023-04-30] MEDS ORDERED: PANTOPRAZOLE 40 MG TABLET PO ONE ×2 (10:24→22:04)
[2023-04-30] MEDS: DEXAMETHASONE 4 MG, DEXAMETHASONE 2 MG PO SCH (10:45)
[2023-04-30] MEDS: PANTOPRAZOLE 40 MG TABLET PO SCH ×2 (10:45→22:26)
[2023-04-30] MEDS ORDERED: LISINOPRIL 5 MG TABLET ONE (12:04)
[2023-04-30] MEDS: LISINOPRIL 5 MG TABLET PO SCH (13:00)
[2023-04-30] MEDS ORDERED: VANCOMYCIN 1 GRAM (PRE-DOCKED) 1,000 MG/250 ML BAG IVPB ONE (18:05)
[2023-04-30] MEDS ORDERED: VANCOMYCIN/WATER FOR INJ (PEG) 1,000 MG/200 ML BAG IVPB SCH (19:00)
[2023-04-30] MEDS ORDERED: ATORVASTATIN CA 20 MG TABLET (FP) ONE (22:04)
[2023-04-30] MEDS: ATORVASTATIN CA 20 MG TABLET (FP) PO SCH (22:26)
[2023-05-01] MEDS ORDERED: PIPERACILLIN/TAZOB 3.375 GM 3.375 GM/50 ML BAG IVPB ONE (02:23)
[2023-05-01] MEDS: PIPERACILLIN/TAZOB 3.375 GM 3.375 GM in DEXTROSE 5%-WATER - 50 ML IVPB SCH ×3 (02:46→17:05)
[2023-05-01] MEDS ORDERED: METOPROLOL TARTRATE 50 MG TABLET (FP) ONE (06:06)
[2023-05-01] MEDS: METOPROLOL TARTRATE 50 MG TABLET (FP) PO SCH ×3 (06:16→21:51)
[2023-05-01] MEDS: APIXABAN 5 MG TABLET PO SCH ×2 (11:23→21:51)
[2023-05-01] MEDS: LISINOPRIL 5 MG TABLET PO SCH (11:24)
[2023-05-01] MEDS: PANTOPRAZOLE 40 MG TABLET PO SCH ×2 (11:24→21:51)
[2023-05-01] MEDS: DEXAMETHASONE 4 MG, DEXAMETHASONE 2 MG PO SCH (11:25)
[2023-05-01] MEDS ORDERED: VANCOMYCIN/WATER FOR INJ (PEG) 1,000 MG/200 ML BAG IVPB SCH (19:00)
[2023-05-01] MEDS: MELATONIN 5 MG TABLETS PO PRN (21:51)
[2023-05-01] MEDS: ATORVASTATIN CA 20 MG TABLET (FP) PO SCH (21:51)
[2023-05-02] MEDS: PIPERACILLIN/TAZOB 3.375 GM 3.375 GM in DEXTROSE 5%-WATER - 50 ML IVPB SCH ×3 (01:57→17:19)
[2023-05-02] MEDS: REMDESIVIR 100 MG in SODIUM CHLORIDE 250 ML IVPB SCH (05:54)
[2023-05-02] MEDS: METOPROLOL TARTRATE 50 MG TABLET (FP) PO SCH ×3 (05:55→21:07)
[2023-05-02] MEDS: LISINOPRIL 5 MG TABLET PO SCH (09:25)
[2023-05-02] MEDS: APIXABAN 5 MG TABLET PO SCH ×2 (09:25→21:06)
[2023-05-02] MEDS: PANTOPRAZOLE 40 MG TABLET PO SCH ×2 (09:25→21:09)
[2023-05-02] MEDS: DEXAMETHASONE SOD PHOSPHATE 4 MG/1 ML VIAL IVPUSH SCH (09:26)
[2023-05-02] MEDS: MELATONIN 5 MG TABLETS PO PRN (21:09)
[2023-05-02] MEDS: ATORVASTATIN CA 20 MG TABLET (FP) PO SCH (21:09)
[2023-05-03] MEDS: PIPERACILLIN/TAZOB 3.375 GM 3.375 GM in DEXTROSE 5%-WATER - 50 ML IVPB SCH ×3 (01:17→17:05)
[2023-05-03] MEDS: REMDESIVIR 100 MG in SODIUM CHLORIDE 250 ML IVPB SCH (05:25)
[2023-05-03] MEDS: METOPROLOL TARTRATE 50 MG TABLET (FP) PO SCH ×3 (05:27→22:23)
[2023-05-03] MEDS: PANTOPRAZOLE 40 MG TABLET PO SCH ×2 (10:18→22:24)
[2023-05-03] MEDS: APIXABAN 5 MG TABLET PO SCH ×2 (10:18→22:25)
[2023-05-03] MEDS: LISINOPRIL 5 MG TABLET PO SCH (10:18)
[2023-05-03] MEDS: DEXAMETHASONE SOD PHOSPHATE 4 MG/1 ML VIAL IVPUSH SCH (10:18)
[2023-05-03] MEDS: MELATONIN 5 MG TABLETS PO PRN (22:24)
[2023-05-03] MEDS: ATORVASTATIN CA 20 MG TABLET (FP) PO SCH (22:25)
[2023-05-04] MEDS: PIPERACILLIN/TAZOB 3.375 GM 3.375 GM in DEXTROSE 5%-WATER - 50 ML IVPB SCH ×3 (01:40→17:29)
[2023-05-04] MEDS: REMDESIVIR 100 MG in SODIUM CHLORIDE 250 ML IVPB SCH ×2 (04:51→05:34)
[2023-05-04] MEDS: guaiFENesin 200 MG/10 ML 10 ML UNIT-DOSE CUPS PO PRN (04:51)
[2023-05-04] MEDS: METOPROLOL TARTRATE 50 MG TABLET (FP) PO SCH ×3 (05:35→21:53)
[2023-05-04 07:10] LABS: POTASSIUM 4.4 mmol/L (3.5-5.1)
[2023-05-04 07:14] LABS: CALCIUM 7.7 mg/dL (8.5-10.1)
[2023-05-04 07:15] LABS: BLOOD UREA NITROGEN 21.4 mg/dL (7-18)
[2023-05-04 07:18] LABS: CREATININE 0.9 mg/dL (0.55-1.3)
[2023-05-04 07:19] LABS: BILIRUBIN,TOTAL 1.5 mg/dL (0.2-1); TOT PROT 5.6 g/dl (6.4-8.2)
[2023-05-04] MEDS: APIXABAN 5 MG TABLET PO SCH ×2 (10:08→21:53)
[2023-05-04] MEDS: DEXAMETHASONE SOD PHOSPHATE 4 MG/1 ML VIAL IVPUSH SCH (10:08)
[2023-05-04] MEDS: LISINOPRIL 5 MG TABLET PO SCH (10:08)
[2023-05-04] MEDS: PANTOPRAZOLE 40 MG TABLET PO SCH ×2 (10:08→21:53)
[2023-05-04 10:46] LABS: EOS % 0.2 % (0-4.5); HEMATOCRIT 29.3 % (35.4-49); HEMOGLOBIN 9.5 GM/dL (11.7-16.9); LYMPH % 10.2 % (8-40); MCH 25.2 pg (25.7-33.7); MCHC 32.3 g/dl (32.0-35.9); MEAN CELL VOLUME 78.1 fl (80-96); MEAN PLT VOLUME 8.1 fl (7.5-11.1); MONO % 8.6 % (3.8-10.2); PLATELET COUNT 327 10^3/uL (134-434); RBC 3.76 M/mm3 (4.00-5.60); RDW 21.7 % (11.9-15.9); WHITE BLOOD COUNT 8.3 K/mm3 (4.0-10.0)
[2023-05-04 11:24] LABS: ANISOCYTOSIS 2+; MACROCYTOSIS 0
[2023-05-04] MEDS: ATORVASTATIN CA 20 MG TABLET (FP) PO SCH (21:53)
[2023-05-04] MEDS: MELATONIN 5 MG TABLETS PO PRN (23:57)
[2023-05-05] MEDS: MELATONIN 5 MG TABLETS PO PRN (01:16)
[2023-05-05] MEDS: PIPERACILLIN/TAZOB 3.375 GM 3.375 GM in DEXTROSE 5%-WATER - 50 ML IVPB SCH ×3 (03:44→18:22)
[2023-05-05] MEDS: METOPROLOL TARTRATE 50 MG TABLET (FP) PO SCH ×3 (05:22→21:29)
[2023-05-05] MEDS: APIXABAN 5 MG TABLET PO SCH ×2 (09:49→21:29)
[2023-05-05] MEDS: LISINOPRIL 5 MG TABLET PO SCH (09:49)
[2023-05-05] MEDS: PANTOPRAZOLE 40 MG TABLET PO SCH ×2 (09:50→21:29)
[2023-05-05] MEDS: DEXAMETHASONE SOD PHOSPHATE 4 MG/1 ML VIAL IVPUSH SCH (09:50)
[2023-05-05] MEDS ORDERED: IRON SUCROSE INJECTION 200 MG in SODIUM CHLORIDE 90 ML IVPB ONE (16:00)
[2023-05-05] MEDS: ATORVASTATIN CA 20 MG TABLET (FP) PO SCH (21:29)
[2023-05-06] MEDS: PIPERACILLIN/TAZOB 3.375 GM 3.375 GM in DEXTROSE 5%-WATER - 50 ML IVPB SCH ×3 (01:32→17:26)
[2023-05-06] MEDS: METOPROLOL TARTRATE 50 MG TABLET (FP) PO SCH ×3 (06:21→21:28)
[2023-05-06 07:26] LABS: BASO % 0.3 % (0-2.0); HEMOGLOBIN 10.5 GM/dL (11.7-16.9); LYMPH % 10.1 % (8-40); MCH 25.1 pg (25.7-33.7); MCHC 31.9 g/dl (32.0-35.9); MEAN CELL VOLUME 78.8 fl (80-96); MEAN PLT VOLUME 8.4 fl (7.5-11.1); MONO % 8.8 % (3.8-10.2); NEUT % 80.8 % (42.8-82.8); PLATELET COUNT 414 10^3/uL (134-434); RBC 4.19 M/mm3 (4.00-5.60); RDW 21.7 % (11.9-15.9); WHITE BLOOD COUNT 10.6 K/mm3 (4.0-10.0)
[2023-05-06 07:56] LABS: POTASSIUM 4.9 mmol/L (3.5-5.1)
[2023-05-06 07:57] LABS: CALCIUM 8.1 mg/dL (8.5-10.1)
[2023-05-06 07:59] LABS: ALBUMIN 2.3 g/dl (3.4-5.0); BLOOD UREA NITROGEN 23.3 mg/dL (7-18)
[2023-05-06 08:04] LABS: BILIRUBIN,TOTAL 1.7 mg/dL (0.2-1); TOT PROT 6.2 g/dl (6.4-8.2)
[2023-05-06] MEDS: APIXABAN 5 MG TABLET PO SCH ×2 (10:14→21:28)
[2023-05-06] MEDS: guaiFENesin 200 MG/10 ML 10 ML UNIT-DOSE CUPS PO PRN (10:14)
[2023-05-06] MEDS: LISINOPRIL 5 MG TABLET PO SCH (10:14)
[2023-05-06] MEDS: PANTOPRAZOLE 40 MG TABLET PO SCH ×2 (10:14→21:27)
[2023-05-06] MEDS: DEXAMETHASONE SOD PHOSPHATE 4 MG/1 ML VIAL IVPUSH SCH (10:15)
[2023-05-06 16:38] LABS: MAGNESIUM 2.3 mg/dL (1.8-2.4)
[2023-05-06 16:42] LABS: PHOSPHOROUS 2.8 mg/dL (2.5-4.9)
[2023-05-06] MEDS: ATORVASTATIN CA 20 MG TABLET (FP) PO SCH (21:27)
[2023-05-06] MEDS: MELATONIN 5 MG TABLETS PO PRN (21:27)
[2023-05-06 23:09] VITALS: BMI 23.1
[2023-05-07] MEDS: PIPERACILLIN/TAZOB 3.375 GM 3.375 GM in DEXTROSE 5%-WATER - 50 ML IVPB SCH ×3 (02:56→18:31)
[2023-05-07] MEDS: METOPROLOL TARTRATE 50 MG TABLET (FP) PO SCH ×3 (06:40→21:25)
[2023-05-07] MEDS: guaiFENesin 200 MG/10 ML 10 ML UNIT-DOSE CUPS PO PRN (06:40)
[2023-05-07 07:24] LABS: BASO % 0.7 % (0-2.0); EOS % 0.1 % (0-4.5); HEMOGLOBIN 10.2 GM/dL (11.7-16.9); LYMPH % 12.7 % (8-40); MCHC 31.7 g/dl (32.0-35.9); MEAN CELL VOLUME 78.9 fl (80-96); MEAN PLT VOLUME 8.3 fl (7.5-11.1); MONO % 8.7 % (3.8-10.2); NEUT % 77.8 % (42.8-82.8); PLATELET COUNT 371 10^3/uL (134-434); RBC 4.06 M/mm3 (4.00-5.60); RDW 22.5 % (11.9-15.9); WHITE BLOOD COUNT 10.4 K/mm3 (4.0-10.0)
[2023-05-07 07:47] LABS: POTASSIUM 4.7 mmol/L (3.5-5.1)
[2023-05-07 07:49] LABS: CALCIUM 7.9 mg/dL (8.5-10.1)
[2023-05-07 07:50] LABS: ALBUMIN 2.2 g/dl (3.4-5.0); BLOOD UREA NITROGEN 20.6 mg/dL (7-18); MAGNESIUM 2.4 mg/dL (1.8-2.4)
[2023-05-07 07:53] LABS: CREATININE 0.9 mg/dL (0.55-1.3)
[2023-05-07 07:55] LABS: BILIRUBIN,TOTAL 1.8 mg/dL (0.2-1); TOT PROT 5.8 g/dl (6.4-8.2)
[2023-05-07] MEDS: LISINOPRIL 5 MG TABLET PO SCH (10:29)
[2023-05-07] MEDS: APIXABAN 5 MG TABLET PO SCH ×2 (10:29→21:26)
[2023-05-07] MEDS: PANTOPRAZOLE 40 MG TABLET PO SCH ×2 (10:29→21:25)
[2023-05-07] MEDS: DEXAMETHASONE SOD PHOSPHATE 4 MG/1 ML VIAL IVPUSH SCH (10:29)
[2023-05-07] MEDS: MELATONIN 5 MG TABLETS PO PRN (21:25)
[2023-05-07] MEDS: ATORVASTATIN CA 20 MG TABLET (FP) PO SCH (21:26)
[2023-05-08] MEDS: PIPERACILLIN/TAZOB 3.375 GM 3.375 GM in DEXTROSE 5%-WATER - 50 ML IVPB SCH ×2 (01:45→10:09)
[2023-05-08] MEDS: guaiFENesin 200 MG/10 ML 10 ML UNIT-DOSE CUPS PO PRN ×2 (03:26→21:57)
[2023-05-08] MEDS: METOPROLOL TARTRATE 50 MG TABLET (FP) PO SCH ×3 (05:47→21:59)
[2023-05-08] MEDS: PANTOPRAZOLE 40 MG TABLET PO SCH ×2 (10:08→21:58)
[2023-05-08] MEDS: APIXABAN 5 MG TABLET PO SCH ×2 (10:08→21:57)
[2023-05-08] MEDS: DEXAMETHASONE SOD PHOSPHATE 4 MG/1 ML VIAL IVPUSH SCH (10:08)
[2023-05-08] MEDS: LISINOPRIL 5 MG TABLET PO SCH (10:08)
[2023-05-08] MEDS ORDERED: guaiFENesin/CODEINE 5 ML UNIT-DOSE CUPS PO PRN ×2 (11:04→11:18)
[2023-05-08] MEDS ORDERED: BENZOCAINE/MENTH/CETYLPYRD CL 1 EACH LOZENGE MM PRN (11:05)
[2023-05-08] MEDS: DOXYCYCLINE HYCLATE 100 MG CAPSULE PO SCH ×2 (14:29→17:40)
[2023-05-08] MEDS: ATORVASTATIN CA 20 MG TABLET (FP) PO SCH (21:58)
[2023-05-08] MEDS: MELATONIN 5 MG TABLETS PO PRN (21:59)
[2023-05-09] MEDS: METOPROLOL TARTRATE 50 MG TABLET (FP) PO SCH ×2 (06:31→15:14)
[2023-05-09] MEDS: LISINOPRIL 5 MG TABLET PO SCH (10:40)
[2023-05-09] MEDS: DOXYCYCLINE HYCLATE 100 MG CAPSULE PO SCH ×2 (10:40→17:49)
[2023-05-09] MEDS: DEXAMETHASONE SOD PHOSPHATE 4 MG/1 ML VIAL IVPUSH SCH (10:40)
[2023-05-09] MEDS: APIXABAN 5 MG TABLET PO SCH (10:40)
[2023-05-09] MEDS: PANTOPRAZOLE 40 MG TABLET PO SCH (10:46)
[2023-05-09 19:09] VITALS: BP 136/86; PULSE 85; RESP 19; TEMP 97.9
== END 2023-05-09 17:30 | DRG 177 ==
LOC: JER 17:38 → JERBED 19:33 → J4S 05-01 09:31
PROVIDERS: ADMIT Internal Medicine; ATTEND Family Medicine
PROC: XW033E5 Introduction of Remdesivir Anti-infective into Peripheral Vein, Percutaneous Approach, New Technology Group 5 (ICD-10-PCS; principal; 2023-04-30)
PROC: 3E0333Z Introduction of Anti-inflammatory into Peripheral Vein, Percutaneous Approach (ICD-10-PCS; 2023-04-30)
DX: U07.1 COVID-19 (principal); J12.82 Pneumonia due to coronavirus disease 2019; D84.9 Immunodeficiency, unspecified; I24.89 Other forms of acute ischemic heart disease; I47.29 Other ventricular tachycardia; R04.2 Hemoptysis; J90 Pleural effusion, not elsewhere classified; I35.0 Nonrheumatic aortic (valve) stenosis; I48.91 Unspecified atrial fibrillation; I25.10 Atherosclerotic heart disease of native coronary artery without angina pectoris; M54.50 Low back pain, unspecified; E87.6 Hypokalemia; I11.0 Hypertensive heart disease with heart failure; I50.9 Heart failure, unspecified; E78.5 Hyperlipidemia, unspecified; R79.89 Other specified abnormal findings of blood chemistry; I25.2 Old myocardial infarction; Z95.5 Presence of coronary angioplasty implant and graft; Z85.46 Personal history of malignant neoplasm of prostate; Z85.51 Personal history of malignant neoplasm of bladder
CPT/HCPCS: 0241U-QW; 36415; 71045-TC-FY; 76705-TC; 80048; 80053; 81003; 83540; 83550; 83735; 84100; 84484; 85025; 85610; 85730; 86140; 86850; 86900; 86901; 87040; 87070; 87086; 87186; 87205; 87899; 93005; 93010; 97116-GP; 97161-GP; 99285-25; J0248; J1756